=== PATIENT | female | born 1955 | race Two or more races ===

== ENCOUNTER 2017-07-21 05:59 | Observation (INO) | payer OTHER ==
[~2017-07-21 05:59] MED LIST: METHYLENE BLUE 1% 10 ML VIAL.
[2017-07-21] MEDS ORDERED: MORPHINE SULFATE 4 MG/ML DISP.SYRIN. IV (07:00)
[2017-07-21] MEDS ORDERED: LIDOCAINE 1% PF 2 ML VIAL. ID (07:00)
[2017-07-21] MEDS ORDERED: fentaNYL PF VIAL 100 MCG/2 ML VIAL IV (07:00)
[2017-07-21] MEDS ORDERED: SEVOFLURANE 61 TO 120 MINUTES. IH (07:06)
[2017-07-21] MEDS ORDERED: MIDAZOLAM HCL/PF 2 MG/2 ML VIAL. (07:06)
[2017-07-21] MEDS ORDERED: NEOSTIGMINE 10 MG/10 ML VIAL. (07:06)
[2017-07-21] MEDS ORDERED: GLYCOPYRROLATE 1 MG/5 ML VIAL. (07:07)
[2017-07-21] MEDS ORDERED: ROCURONIUM 50 MG/5 ML VIAL. (07:07)
[2017-07-21] MEDS ORDERED: fentaNYL PF VIAL 100 MCG/2 ML VIAL ×2 (07:07→08:45)
[2017-07-21] MEDS ORDERED: ONDANSETRON PF 4 MG/2 ML VIAL. (07:08)
[2017-07-21] MEDS ORDERED: PROPOFOL 20 ML IV (07:08)
[2017-07-21] MEDS ORDERED: DEXAMETHASONE SOD PHOS 20 MG/5 ML VIAL. (07:08)
[2017-07-21] MEDS ORDERED: LIDOCAINE 2% PF Vial for OR 5 ML VIAL. (07:08)
[2017-07-21] MEDS ORDERED: PHENYLEPHRINE in 0.9% NACL PF 1 MG/10 ML SYRINGE. IV (07:08)
[2017-07-21] MEDS ORDERED: KETOROLAC 30 MG/ML INJ FOR OR. INJ (07:08)
[2017-07-21 07:20] LABS: ADD MAN DIFF? NO
[2017-07-21] MEDS: IV RINGERS,LACTATED 1000ML 1,000 ML IV ×4 (07:25→22:29)
[2017-07-21] MEDS ORDERED: SCOPOLAMINE 1.5MG PATCH. TD ×2 (07:29→09:00)
[2017-07-21 07:30] LABS: BASO # 0.1 x10^3/uL (0.0-0.2); BASO % 1 % (0-3); EOS # 0.3 x10^3/uL (0.0-0.7); EOS % 5 % (0-3); HEMATOCRIT 33.7 % (36.0-47.0); HEMOGLOBIN 11.7 g/dL (12.0-15.5); LYMPH # 1.5 x10^3/uL (1.0-4.8); LYMPH % 27 % (24-48); MEAN CORPUSCULAR HEMOGLOBIN 30 pg (25-35); MEAN CORPUSCULAR HGB CONC 35 g/dL (31-37); MEAN CORPUSCULAR VOLUME 87 fL (79-100); MONO # 0.4 x10^3/uL (0.0-1.1); MONO % 6 % (0-9); NEUT # 3.4 x10^3uL (1.8-7.7); NEUT % 61 % (31-73); PLATELET COUNT 211 x10^3/uL (140-400); RED BLOOD COUNT 3.88 x10^6/uL (3.50-5.40); RED CELL DISTRIBUTION WIDTH 12.8 % (11.5-14.5); WHITE BLOOD COUNT 5.6 x10^3/uL (4.0-11.0)
[2017-07-21] MEDS: BUPIVAC MPF-EPI 0.5%-1:200000 30 ML VIAL. INJ (08:17)
[2017-07-21] MEDS: LIDOCAINE 1%/EPI 1:100,000 20 ML VIAL. INJ (08:17)
[2017-07-21] MEDS: metroNIDAZOLE 0.75% TOPICAL 1 APP TUBE TP (09:50)
[2017-07-21] MEDS ORDERED: MAG HYDROX/ALUMINUM HYD/SIMETH 30 ML ORAL.SUSP PO ×2 (10:00→10:30)
[2017-07-21] MEDS ORDERED: 0.9 % SODIUM CHLORIDE 10 ML DISP.SYRIN. IV ×2 (10:00→10:30)
[2017-07-21] MEDS ORDERED: NALOXONE 0.4 MG/ML VIAL. IV ×3 (10:00→10:30)
[2017-07-21] MEDS ORDERED: ZOLPIDEM 5 MG TABLET. PO ×2 (10:00→10:30)
[2017-07-21] MEDS ORDERED: ceFAZolin SODIUM 1 GM in IV DEXTROSE 5% 50 ML IV ×2 (10:00→10:30)
[2017-07-21] MEDS ORDERED: ONDANSETRON PF 4 MG/2 ML VIAL. IV ×2 (10:00→10:30)
[2017-07-21] MEDS ORDERED: diphenhydrAMINE HCL 25 MG CAPSULE PO ×2 (10:00→10:30)
[2017-07-21] MEDS ORDERED: diphenhydrAMINE 50 MG/ML VIAL IV ×2 (10:00→10:30)
[2017-07-21] MEDS ORDERED: DEXTROSE 50% 25 GM / 50ML DISP.SYRIN. IV ×2 (10:00→10:30)
[2017-07-21] MEDS ORDERED: MORPHINE SULFATE/PF 30 ML IV (10:12)
[2017-07-21] MEDS: PROCHLORPERAZINE 10 MG/2 ML VIAL. IV ×2 (10:22→10:58)
[2017-07-21] MEDS: fentaNYL PF VIAL 100 MCG/2 ML VIAL IV ×2 (10:23→10:58)
[2017-07-21] MEDS ORDERED: CALCIUM CARBONATE 500 MG TAB.CHEW PO (10:30)
[2017-07-21] MEDS ORDERED: SIMETHICONE 80 MG TAB.CHEW PO (10:30)
[2017-07-21] MEDS ORDERED: oxyCODONE/APAP 5/325 1 TAB TABLET PO (10:30)
[2017-07-21] MEDS: MORPHINE SULFATE/PF 30 ML IV (10:41)
[2017-07-21] MEDS ORDERED: IV NORMAL SALINE 1000ML BAG 1,000 ML IV (11:00)
[2017-07-21] MEDS: ceFAZolin SODIUM IV Push 1 GM VIAL. IVP ×2 (16:06→22:36)
[2017-07-21] MEDS: ONDANSETRON PF 4 MG/2 ML VIAL. IV (16:17)
[2017-07-21] MEDS ORDERED: OPIUM/BELLADONNA 30/16.2MG SUPP.RECT. PR (18:30)
[2017-07-21] MEDS: oxyCODONE/APAP 5/325 1 TAB TABLET PO ×2 (18:45→22:47)
[2017-07-21] MEDS: SENNOSIDES/DOCUSATE 8.6/50MG TABLET. PO (21:00)
[2017-07-21] MEDS ORDERED: SENNOSIDES/DOCUSATE 8.6/50MG TABLET. PO (21:00)
[2017-07-21] MEDS: DOCUSATE SODIUM 100 MG CAPSULE. PO (21:00)
[2017-07-21] MEDS ORDERED: DOCUSATE SODIUM 100 MG CAPSULE. PO (21:00)
[2017-07-22] MEDS: ceFAZolin SODIUM IV Push 1 GM VIAL. IVP (04:00)
[2017-07-22] MEDS: oxyCODONE/APAP 5/325 1 TAB TABLET PO ×2 (06:21→18:04)
[2017-07-22] MEDS: IV RINGERS,LACTATED 1000ML 1,000 ML IV (06:21)
[2017-07-22 07:24] LABS: HEMATOCRIT 26.7 % (36.0-47.0)
[2017-07-22 07:36] LABS: ANION GAP 6 (6-14); BLOOD UREA NITROGEN 13 mg/dL (7-20); CALCIUM 8.3 mg/dL (8.5-10.1); CARBON DIOXIDE 29 mmol/L (21-32); CHLORIDE 106 mmol/L (98-107); CREATININE 0.9 mg/dL (0.6-1.0); GFR 63.7; GLUCOSE 144 mg/dL (70-99); POTASSIUM 4.5 mmol/L (3.5-5.1); SODIUM 141 mmol/L (136-145)
[2017-07-22] MEDS: SENNOSIDES/DOCUSATE 8.6/50MG TABLET. PO (13:57)
[2017-07-22] MEDS: SIMETHICONE 80 MG TAB.CHEW PO (13:57)
[2017-07-22] MEDS: CALCIUM CARBONATE 500 MG TAB.CHEW PO (13:57)
[2017-07-23] MEDS: ONDANSETRON ODT 4 MG TAB.RAPDIS. PO (00:48)
[2017-07-23] MEDS: oxyCODONE/APAP 5/325 1 TAB TABLET PO ×2 (02:11→08:09)
[2017-07-23] MEDS: SIMETHICONE 80 MG TAB.CHEW PO (08:09)
[2017-07-23] MEDS: SENNOSIDES/DOCUSATE 8.6/50MG TABLET. PO (08:09)
[2017-07-23] MEDS: DOCUSATE SODIUM 100 MG CAPSULE. PO (08:09)
== END 2017-07-23 12:00 | disposition home or self-care (01) ==
LOC: SURG 05:59 → 3 NORTH 10:28
DX: N81.2 Incomplete uterovaginal prolapse (principal); N39.3 Stress incontinence (female) (male); K21.9 Gastro-esophageal reflux disease without esophagitis
CPT/HCPCS: 36415; 80048; 85014; 85025; 86850; 86900; 86901; 88302; 88309; 88311; 88342; 96374; 96375; 96376; A7015; G0378; G0379; J0690; J0780; J1100; J1885; J2250; J2270; J2370; J2405; J2704; J2710; J3010; J3490; J7030; J7120; Q0162; Q9968

== ENCOUNTER 2018-03-01 07:00 | Inpatient (IN) | payer OTHER ==
[~2018-03-01] VITALS: Ht 152.4 cm; Wt 59.0 kg
[~2018-03-01 07:00] MED LIST changes: +ASPI81TA50 PO; +LACT1CAP29 PO; +LACT1TAB6 PO; +LISI-334 PO; -METHYLENE BLUE 1% 10 ML VIAL.; +MULT-658 PO; +NAPR-514 PO; +OXYC1TAB15 PO; +SUCR1TAB35 PO
[2018-03-01] MEDS ORDERED: IV NORMAL SALINE 1000ML BAG 1,000 ML IV SCH (07:30)
[2018-03-01] MEDS ORDERED: ONDANSETRON PF 4 MG/2 ML VIAL. IV ONE ×2 (07:30→09:00)
[2018-03-01 07:58] LABS: BASO # 0.1 x10^3/uL (0.0-0.2); BASO % 0 % (0-3); EOS # 0.1 x10^3/uL (0.0-0.7); EOS % 1 % (0-3); HEMOGLOBIN 12.4 g/dL (12.0-15.5); LYMPH # 0.5 x10^3/uL (1.0-4.8); LYMPH % 3 % (24-48); MEAN CORPUSCULAR HEMOGLOBIN 30 pg (25-35); MEAN CORPUSCULAR HGB CONC 34 g/dL (31-37); MEAN CORPUSCULAR VOLUME 87 fL (79-100); MONO # 0.3 x10^3/uL (0.0-1.1); MONO % 2 % (0-9); NEUT # 14.9 x10^3uL (1.8-7.7); NEUT % 94 % (31-73); PLATELET COUNT 236 x10^3/uL (140-400); RED BLOOD COUNT 4.13 x10^6/uL (3.50-5.40); RED CELL DISTRIBUTION WIDTH 13.5 % (11.5-14.5); WHITE BLOOD COUNT 15.9 x10^3/uL (4.0-11.0)
--- NOTE | 2018-03-01 08:03 | PHYS DOC ---
Past Medical History Past Medical History: Hypertension, IBS Additional Past Medical Histor: Hx.from [facility]. Past Surgical History: Other (rika fundoplication) Additional Past Surgical Histo: [facility].reports pt.has had female surgery& something w/her esophagus. Alcohol Use: None Drug Use: None Adult General Chief Complaint Chief Complaint: NAUSEA/VOMITING/DIARRHA HPI HPI Patient is a 62-year-old female presents to the emergency department. She states "I'm sick". She states that last night, she began experiencing nausea and vomiting, and has had numerous episodes of watery diarrhea. Her emesis and stools have both been nonbloody. She has not had any definite abdominal pain. She has not had any fevers or chills, or nasal congestion. She denies any recent travel or antibiotic use. She denies any chest pain or shortness of breath. She denies any headache or vision changes. There are no alleviating or exacerbating factors to her symptoms. Review of Systems Review of Systems Constitutional: Denies fever or chills [] Eyes: Denies change in visual acuity, redness, or eye pain [] HENT: Denies nasal congestion or sore throat [] Respiratory: Denies cough or shortness of breath [] Cardiovascular: The patient denies any shortness of breath, chest pain, palpitations, or orthopnea [] GI: No additional information not addressed in HPI [] : Denies dysuria or hematuria [] Musculoskeletal: Denies back pain or joint pain [] Integument: Denies rash or skin lesions [] Neurologic: Denies headache, focal weakness or sensory changes [] Endocrine: Denies polyuria or polydipsia [] All other systems were reviewed and found to be within normal limits, except as documented in this note. Current Medications Current Medications Current Medications Medications (Trade) Dose Ordered Sig/Abdiaziz Start Time Stop Time Status Last Admin Dose Admin Info (CONTRAST GIVEN -- Rx MONITORING) 1 each PRN DAILY PRN 03/01/18 09:00 03/03/18 08:59 Iohexol (Omnipaque 300 Mg/ml) 60 ml 1X ONCE 03/01/18 08:45 03/01/18 08:48 DC 03/01/18 09:13 60 ML Ondansetron HCl (Zofran) 4 mg 1X ONCE 03/01/18 09:00 03/01/18 09:01 DC 03/01/18 08:57 4 MG Sodium Chloride 1,000 ml @ 1,000 mls/hr Q1H 03/01/18 07:30 03/01/18 08:29 DC 03/01/18 07:53 1,000 MLS/HR Allergies Allergies Allergies Coded Allergies Type Severity Reaction Last Updated Verified promethazine Adverse Reaction Severe SEVERE MIGRAINE 07/21/17 Yes lactose Adverse Reaction Mild Constipation. 03/01/18 Yes Physical Exam Physical Exam PHYSICAL EXAM: CONSTITUTIONAL: Well developed, well nourished HEAD: normocephalic, atraumatic EENT: PERRL, EOMI. Conjunctivae normal color, sclerae non-icteric; moist mucous membranes. NECK: Supple, non-tender; no meningismus. LUNGS: Lungs CTA, breathing even and unlabored. Normal air movement. HEART: Regular rate and rhythm, no murmur CHEST: No deformity; non-tender ABDOMEN: The abdomen is soft, and non-tender, no masses or bruits. bowel sounds are present. EXTREM: Normal ROM; no deformity, no calf tenderness. Normal pulses palpable in all extremities. There is no pedal edema. SKIN: No rash; no diaphoresis NEURO: Alert; normal speech and cognition; CN's grossly intact; strength grossly intact without focal deficit. BACK: No CVA TTP. Current Patient Data Vital Signs Vital Signs Date Time Temp Pulse Resp B/P (MAP) Pulse Ox O2 Delivery O2 Flow Rate FiO2 03/01/18 09:22 71 16 177/79 (111) 99 03/01/18 07:55 Room Air 03/01/18 07:05 98.2 98.2 Lab Values Laboratory Tests Test 03/01/18 07:38 03/01/18 08:25 White Blood Count 15.9 x10^3/uL (4.0-11.0) H Red Blood Count 4.13 x10^6/uL (3.50-5.40) Hemoglobin 12.4 g/dL (12.0-15.5) Hematocrit 36.0 % (36.0-47.0) Mean Corpuscular Volume 87 fL (79-100) Mean Corpuscular Hemoglobin 30 pg (25-35) Mean Corpuscular Hemoglobin Concent 34 g/dL (31-37) Red Cell Distribution Width 13.5 % (11.5-14.5) Platelet Count 236 x10^3/uL (140-400) Neutrophils (%) (Auto) 94 % (31-73) H Lymphocytes (%) (Auto) 3 % (24-48) L Monocytes (%) (Auto) 2 % (0-9) Eosinophils (%) (Auto) 1 % (0-3) Basophils (%) (Auto) 0 % (0-3) Neutrophils # (Auto) 14.9 x10^3uL (1.8-7.7) H Lymphocytes # (Auto) 0.5 x10^3/uL (1.0-4.8) L Monocytes # (Auto) 0.3 x10^3/uL (0.0-1.1) Eosinophils # (Auto) 0.1 x10^3/uL (0.0-0.7) Basophils # (Auto) 0.1 x10^3/uL (0.0-0.2) Segmented Neutrophils % 77 % (35-66) H Band Neutrophils % 12 % (0-9) H Lymphocytes % 5 % (24-48) L Monocytes % 4 % (0-10) Eosinophils % 2 % (0-5) Platelet Estimate Adequate (ADEQUATE) Sodium Level 140 mmol/L (136-145) Potassium Level 4.0 mmol/L (3.5-5.1) Chloride Level 102 mmol/L (98-107) Carbon Dioxide Level 24 mmol/L (21-32) Anion Gap 14 (6-14) Blood Urea Nitrogen 22 mg/dL (7-20) H Creatinine 1.2 mg/dL (0.6-1.0) H Estimated GFR (Cockcroft-Gault) 45.7 BUN/Creatinine Ratio 18 (6-20) Glucose Level 247 mg/dL (70-99) H Lactic Acid Level 2.2 mmol/L (0.4-2.0) H Calcium Level 10.0 mg/dL (8.5-10.1) Total Bilirubin 0.7 mg/dL (0.2-1.0) Aspartate Amino Transferase (AST) 18 U/L (15-37) Alanine Aminotransferase (ALT) 23 U/L (14-59) Alkaline Phosphatase 73 U/L (46-116) Troponin I Quantitative < 0.017 ng/mL (0.000-0.055) Total Protein 7.7 g/dL (6.4-8.2) Albumin 4.2 g/dL (3.4-5.0) Albumin/Globulin Ratio 1.2 (1.0-1.7) Lipase 104 U/L (73-393) Urine Collection Type U cath Urine Color Yellow Urine Clarity Clear Urine pH 5.5 Urine Specific [place] >=1.030 Urine Protein Negative mg/dL (NEG-TRACE) Urine Glucose (UA) >=1000 mg/dL (NEG) Urine Ketones (Stick) 40 mg/dL (NEG) Urine Blood Trace (NEG) Urine Nitrite Negative (NEG) Urine Bilirubin Negative (NEG) Urine Urobilinogen Dipstick 0.2 mg/dL (0.2 mg/dL) Urine Leukocyte Esterase Negative (NEG) Urine RBC Occ /HPF (0-2) Urine WBC 1-4 /HPF (0-4) Urine Squamous Epithelial Cells Occ /LPF Urine Bacteria Few /HPF (0-FEW) Urine Hyaline Casts Occasional /HPF Urine Mucus Marked /LPF Laboratory Tests 03/01/18 07:38 Laboratory Tests 03/01/18 07:38 EKG EKG [Normal sinus rhythm at a rate of 64 beats for minute, normal axis, normal intervals. There are no acute ischemic ST/T changes.] Radiology/Procedures Radiology/Procedures [PROCEDURE: ACUTE ABDOMEN SERIES Indication: Nausea vomiting and diarrhea TECHNIQUE: Upright chest and 2 views of the abdomen and pelvis COMPARISON: None FINDINGS: Heart is normal in size. Lungs are clear. No pneumothorax or pleural effusion. Visualized bony thorax is within normal limits. No evidence of pneumoperitoneum. No abnormally dilated bowel loops. No abnormal calcific densities projecting over the kidneys to suggest apparent renal stones. Visualized bones are within normal limits. IMPRESSION: No acute radiographic findings of high-grade bowel obstruction.. ] PROCEDURE: CT ABD PELV W/ IV CONTRST ONLY PQRS Compliance statement: One or more of the following individualized dose reduction techniques were utilized for this examination: 1. Automated exposure control. 2. Adjustment of the mA and/or kV according to patient size. 3. Use of iterative reconstruction technique. Indication:Nausea vomiting diarrhea, leukocytosis sx: Dane fundoplication inj 60ml Omni 300 no prev TECHNIQUE: CT abdomen and pelvis with IV contrast with multiplanar reformats. COMPARISON: None FINDINGS: Heart is normal in size. No pericardial or pleural effusion. Clear lung bases. Liver, spleen, gallbladder, pancreas, adrenals and kidneys are within normal limits. No free pelvic fluid or ascites. No enlarged retroperitoneal or pelvic adenopathy. Mild diffuse atherosclerotic disease of the infrarenal aorta. Normal appendix. No bowel obstruction. Circumferential wall thickening is seen of the descending colon and rectosigmoid colon. Rectum is distended filled with fluid. No pneumoperitoneum or pneumatosis intestinalis. Uterus is surgically absent. Urinary bladder is within normal limits. Mild sigmoid diverticulosis. Proximal colon is decompressed. No suspicious bony lesion. IMPRESSION: 1. Diffuse long segment wall thickening of the descending colon and sigmoid colon suggests colitis. Course & Med Decision Making Course & Med Decision Making Pertinent Labs and Imaging studies reviewed. (See chart for details) [9:40 AM: The patient's condition remained stable. She still appears very weak, and has had recurrent nausea and vomiting the emergency department. Her CT demonstrated colitis. I discussed the test with the patient and she would like to be hospitalized for further evaluation and treatment, which seems appropriate given her ongoing emesis. I discussed the case with the hospitalist who has graciously agreed to admit the patient for further evaluation. Leukocytosis with a left shift is noted.] Dragon Disclaimer Dragon Disclaimer This electronic medical record was generated, in whole or in part, using a voice recognition dictation system. Departure Departure Impression: Primary Impression: Colitis Additional Impressions: Leukocytosis Intractable nausea and vomiting Disposition: ADMITTED INPATIENT Admitting Physician: Stacia Gerard Condition: STABLE Referrals: NON,STAFF (PCP) Problem Qualifiers COLLEEN CARTER MD Mar 01, 2018 08:03
--- NOTE | 2018-03-01 08:18 | RAD ---
Indication: Nausea vomiting and diarrhea TECHNIQUE: Upright chest and 2 views of the abdomen and pelvis COMPARISON: None FINDINGS: Heart is normal in size. Lungs are clear. No pneumothorax or pleural effusion. Visualized bony thorax is within normal limits. No evidence of pneumoperitoneum. No abnormally dilated bowel loops. No abnormal calcific densities projecting over the kidneys to suggest apparent renal stones. Visualized bones are within normal limits. IMPRESSION: No acute radiographic findings of high-grade bowel obstruction.. Electronically signed by: Stuart Carmichael DO (03/01/2018 8:14 AM) [facility]
[2018-03-01 08:19] LABS: CREATININE 1.2 mg/dL (0.6-1.0); GFR 45.7
[2018-03-01 08:32] LABS: % BANDS 12 % (0-9); % EOS 2 % (0-5); % LYMPHS 5 % (24-48); % MONOS 4 % (0-10); % SEGS 77 % (35-66); ALBUMIN 4.2 g/dL (3.4-5.0); ALBUMIN/GLOBULIN RATIO 1.2 (1.0-1.7); PLT ESTIMATE ADEQUATE (ADEQUATE); TOTAL BILIRUBIN 0.7 mg/dL (0.2-1.0); TOTAL PROTEIN 7.7 g/dL (6.4-8.2)
[2018-03-01 08:37] LABS: BILIRUBIN,URINE NEGATIVE (NEG); CLARITY,URINE CLEAR; COLOR,URINE YELLOW; NITRITE,URINE NEGATIVE (NEG); PH,URINE 5.5; PROTEIN,URINE NEGATIVE (NEG-TRACE); UROBILINOGEN,URINE 0.2 mg/dL (0.2 mg/dL)
[2018-03-01] MEDS ORDERED: IOHEXOL 300 MG/ML 100ML VIAL. IV ONE (08:45)
[2018-03-01] MEDS ORDERED: CONTRAST GIVEN. MC PRN (09:00)
[2018-03-01 09:01] LABS: BACTERIA,URINE FEW /HPF (0-FEW); HYALINE CASTS, URINE OCCASIONAL /HPF; RBC,URINE OCC /HPF (0-2); SQUAMOUS EPITHELIAL CELL,UR OCC /LPF
--- NOTE | 2018-03-01 09:32 | RAD ---
PQRS Compliance statement: One or more of the following individualized dose reduction techniques were utilized for this examination: 1. Automated exposure control. 2. Adjustment of the mA and/or kV according to patient size. 3. Use of iterative reconstruction technique. Indication:Nausea vomiting diarrhea, leukocytosis sx: Dane fundoplication inj 60ml Omni 300 no prev TECHNIQUE: CT abdomen and pelvis with IV contrast with multiplanar reformats. COMPARISON: None FINDINGS: Heart is normal in size. No pericardial or pleural effusion. Clear lung bases. Liver, spleen, gallbladder, pancreas, adrenals and kidneys are within normal limits. No free pelvic fluid or ascites. No enlarged retroperitoneal or pelvic adenopathy. Mild diffuse atherosclerotic disease of the infrarenal aorta. Normal appendix. No bowel obstruction. Circumferential wall thickening is seen of the descending colon and rectosigmoid colon. Rectum is distended filled with fluid. No pneumoperitoneum or pneumatosis intestinalis. Uterus is surgically absent. Urinary bladder is within normal limits. Mild sigmoid diverticulosis. Proximal colon is decompressed. No suspicious bony lesion. IMPRESSION: 1. Diffuse long segment wall thickening of the descending colon and sigmoid colon suggests colitis. Electronically signed by: Stuart Carmichael DO (03/01/2018 9:28 AM) [facility]
[2018-03-01] MEDS ORDERED: IV NORMAL SALINE 1000ML BAG 1,000 ML IV ONE ×2 (09:45)
[2018-03-01] MEDS ORDERED: oxyCODONE/APAP 5/325 1 TAB TABLET PO PRN (10:00)
[2018-03-01] MEDS ORDERED: ACETAMINOPHEN 500 MG TABLET PO PRN (10:15)
[2018-03-01] MEDS ORDERED: ACETAMINOPHEN/CODEINE 300/30MG TABLET. PO PRN (10:15)
[2018-03-01] MEDS ORDERED: LABETALOL 20 MG/4 ML DISP.SYRIN. IVP PRN (10:15)
[2018-03-01] MEDS ORDERED: MORPHINE SULFATE 2 MG/ML VIAL. IV PRN (10:15)
--- NOTE | 2018-03-01 11:36 | PDOC1 ---
History and Physical Date of Admission Date of Admission DATE: 03/01/18 TIME: 11:31 Identification/Chief Complaint Chief Complaint Nausea vomiting diarrhea 1 day Source Source: Caregiver, Chart review, Patient History of Present Illness History of Present Illness 62-year-old female, nausea vomiting diarrhea 1 day, no recent sick contacts or recent travel. History of colitis 3 in a span of years. Never had a colonoscopy. Colitis on CAT scan with a white count of 15.9, normal hemoglobin and platelets with a creatinine of 1.2 and a lactate of 2.2. Patient has a bucket at bedside, minimal input by pt with my H and P bec of feeling sick but the helps. Watery diarrhea but no blood. Admitted for colitis started on antibiotics with GI on board. Past Medical History GI: GERD Past Surgical History Past Surgical History: Hernia Repair Family History Family History: Hypertension Social History Smoke: No ALCOHOL: none Drugs: None Current Problem List Problem List Problems Medical Problems: (1) Colitis Status: Acute (2) Intractable nausea and vomiting Status: Acute (3) Leukocytosis Status: Acute Current Medications Current Medications Current Medications Sodium Chloride 1,000 ml @ 1,000 mls/hr Q1H IV Last administered on at 07:53; Start 03/01/18 at 07:30; Stop 03/01/18 at 08:29; Status DC Ondansetron HCl (Zofran) 4 mg 1X ONCE IV Last administered on 03/01/18at 07:53 ; Start 03/01/18 at 07:30; Stop 03/01/18 at 07:35; Status DC Iohexol (Omnipaque 300 Mg/ml) 60 ml 1X ONCE IV Last administered on at 09:13; Start 03/01/18 at 08:45; Stop 03/01/18 at 08:48; Status DC Info (CONTRAST GIVEN -- Rx MONITORING) 1 each PRN DAILY PRN MC SEE COMMENTS; Start 03/01/18 at 09:00; Stop 03/03/18 at 08:59 Ondansetron HCl (Zofran) 4 mg 1X ONCE IV Last administered on 03/01/18at 08:57 ; Start 03/01/18 at 09:00; Stop 03/01/18 at 09:01; Status DC Sodium Chloride 1,000 ml @ 1,000 mls/hr 1X ONCE IV Last administered on 03/01at 10:19; Start 03/01/18 at 09:45; Stop 03/01/18 at 10:44; Status DC Metronidazole 100 ml @ 100 mls/hr Q8HRS IV ; Start 03/01/18 at 14:00 Ondansetron HCl (Zofran) 4 mg PRN Q8HRS PRN IV NAUSEA/VOMITING; Start at 09:45; Stop 03/02/18 at 09:44 Sodium Chloride 1,000 ml @ 125 mls/hr 1X ONCE IV ; Start 03/01/18 at 09:45; Stop 03/01/18 at 17:44 Metronidazole 100 ml @ 100 mls/hr ONCE ONCE IV Last administered on at 10:56; Start 03/01/18 at 10:00; Stop 03/01/18 at 10:59; Status DC Aspirin (Ecotrin) 81 mg DAILY PO ; Start 03/01/18 at 11:00 Lisinopril (Prinivil) 20 mg DAILY PO ; Start 03/01/18 at 11:00 Oxycodone/ Acetaminophen (Percocet 5/325) 1 tab PRN QID PRN PO MODERATE TO SEVERE PAIN; Start 03/01/18 at 10:00 Naproxen (Naprosyn) 500 mg BID PO ; Start 03/01/18 at 10:15 Lactobacillus Rhamnosus (Culturelle) 1 cap BID PO ; Start 03/01/18 at 11:00 Multivitamins (Thera M Plus) 1 tab DAILY PO ; Start 03/01/18 at 11:00 Sucralfate (Carafate) 1 gm QIDACHS PO ; Start 03/01/18 at 11:30 Acetaminophen (Tylenol) 500 mg PRN Q6HRS PRN PO MILD PAIN / TEMP; Start at 10:15 Acetaminophen/ Codeine Phosphate (Tylenol #3) 1 tab PRN Q6HRS PRN PO MODERATE PAIN; Start 03/01/18 at 10:15 Famotidine (Pepcid Vial) 20 mg QHS IVP ; Start 03/01/18 at 21:00 Morphine Sulfate (Morphine Sulfate) 2 mg PRN Q2HR PRN IV PAIN; Start 03/01/18 at 10:15 Sodium Chloride 1,000 ml @ 100 mls/hr Q10H IV ; Start 03/01/18 at 10:15 Labetalol HCl (Normodyne Iv Push) 10 mg PRN Q2HR PRN IVP HYPERTENSION, SEE COMMENTS; Start 03/01/18 at 10:15 Active Scripts Active Naproxen 500 Mg Tablet 500 Mg PO BID Percocet 5-325 Mg Tablet (Oxycodone/Acetaminophen) 1 Each Tablet 1-2 Tab PO Q4-6HRS Reported Acidophilus (Lactobacillus Acidophilus) 1 Each Tablet 1 Each PO Centrum Silver Tablet (Multivits-Min/Fa/Lycopene/Lut) 1 Each Tablet 1 Each PO Probiotic (Lactobacillus Combo No.10) 1 Each Capsule 1 Each PO Carafate (Sucralfate) 1 Gm Tablet 1 Gm PO Aspir-Low (Aspirin) 81 Mg Tablet.dr 81 Mg PO Lisinopril 20 Mg Tablet 20 Mg PO DAILY Allergies Allergies: Coded Allergies: promethazine (Verified Adverse Reaction, Severe, SEVERE MIGRAINE, 07/21/17) lactose (Verified Adverse Reaction, Mild, Constipation., 03/01/18) ROS Review of System as per history of present illness, the rest of ROS 14 point negative Physical Exam General: No acute distress, Other (looks sick, bucket at bedside) HEENT: PERRLA, EOMI Lungs: Clear to auscultation, Normal air movement Heart: S1S2, RRR, no thrills, no rubs, no gallops, no murmurs Cardiovascular: S1, S2 Breasts: Normal, Rt breast nml w/o mass, Lt breast nml w/o mass, Nipples normal Abdomen: Soft, Other (hyperactive bowel sounds, tenderness periumbilical area but no guarding or rebound) Rectal Exam: not examined PELVIC: Nml ext genitalia Extremities: No clubbing, No cyanosis, No edema, Normal pulses, No tenderness/ swelling Skin: No rashes, No breakdown, No significant lesion Neuro: Normal gait, Normal speech, Strength at 5/5 X4 ext, Normal tone, Sensation intact, Cranial nerves 3-12 NL, Reflexes 2+ Psych/Mental Status: Mental status NL, Mood NL Vitals Vitals Vital Signs Date Time Temp Pulse Resp B/P (MAP) Pulse Ox O2 Delivery O2 Flow Rate FiO2 03/01/18 10:58 68 18 187/81 (116) 97 Room Air 03/01/18 07:05 98.2 98.2 Labs Labs Laboratory Tests Test 03/01/18 07:30 03/01/18 07:38 03/01/18 08:25 Erythrocyte Sedimentation Rate 15 (0-25) White Blood Count 15.9 x10^3/uL (4.0-11.0) Red Blood Count 4.13 x10^6/uL (3.50-5.40) Hemoglobin 12.4 g/dL (12.0-15.5) Hematocrit 36.0 % (36.0-47.0) Mean Corpuscular Volume 87 fL (79-100) Mean Corpuscular Hemoglobin 30 pg (25-35) Mean Corpuscular Hemoglobin Concent 34 g/dL (31-37) Red Cell Distribution Width 13.5 % (11.5-14.5) Platelet Count 236 x10^3/uL (140-400) Neutrophils (%) (Auto) 94 % (31-73) Lymphocytes (%) (Auto) 3 % (24-48) Monocytes (%) (Auto) 2 % (0-9) Eosinophils (%) (Auto) 1 % (0-3) Basophils (%) (Auto) 0 % (0-3) Neutrophils # (Auto) 14.9 x10^3uL (1.8-7.7) Lymphocytes # (Auto) 0.5 x10^3/uL (1.0-4.8) Monocytes # (Auto) 0.3 x10^3/uL (0.0-1.1) Eosinophils # (Auto) 0.1 x10^3/uL (0.0-0.7) Basophils # (Auto) 0.1 x10^3/uL (0.0-0.2) Segmented Neutrophils % 77 % (35-66) Band Neutrophils % 12 % (0-9) Lymphocytes % 5 % (24-48) Monocytes % 4 % (0-10) Eosinophils % 2 % (0-5) Platelet Estimate Adequate (ADEQUATE) Sodium Level 140 mmol/L (136-145) Potassium Level 4.0 mmol/L (3.5-5.1) Chloride Level 102 mmol/L (98-107) Carbon Dioxide Level 24 mmol/L (21-32) Anion Gap 14 (6-14) Blood Urea Nitrogen 22 mg/dL (7-20) Creatinine 1.2 mg/dL (0.6-1.0) Estimated GFR (Cockcroft-Gault) 45.7 BUN/Creatinine Ratio 18 (6-20) Glucose Level 247 mg/dL (70-99) Lactic Acid Level 2.2 mmol/L (0.4-2.0) Calcium Level 10.0 mg/dL (8.5-10.1) Total Bilirubin 0.7 mg/dL (0.2-1.0) Aspartate Amino Transf (AST/SGOT) 18 U/L (15-37) Alanine Aminotransferase (ALT/SGPT) 23 U/L (14-59) Alkaline Phosphatase 73 U/L (46-116) Troponin I Quantitative < 0.017 ng/mL (0.000-0.055) Total Protein 7.7 g/dL (6.4-8.2) Albumin 4.2 g/dL (3.4-5.0) Albumin/Globulin Ratio 1.2 (1.0-1.7) Lipase 104 U/L (73-393) Urine Collection Type U cath Urine Color Yellow Urine Clarity Clear Urine pH 5.5 Urine Specific [place] >=1.030 Urine Protein Negative mg/dL (NEG-TRACE) Urine Glucose (UA) >=1000 mg/dL (NEG) Urine Ketones (Stick) 40 mg/dL (NEG) Urine Blood Trace (NEG) Urine Nitrite Negative (NEG) Urine Bilirubin Negative (NEG) Urine Urobilinogen Dipstick 0.2 mg/dL (0.2 mg/dL) Urine Leukocyte Esterase Negative (NEG) Urine RBC Occ /HPF (0-2) Urine WBC 1-4 /HPF (0-4) Urine Squamous Epithelial Cells Occ /LPF Urine Bacteria Few /HPF (0-FEW) Urine Hyaline Casts Occasional /HPF Urine Mucus Marked /LPF Laboratory Tests Test 03/01/18 07:30 03/01/18 07:38 03/01/18 08:25 Erythrocyte Sedimentation Rate 15 (0-25) White Blood Count 15.9 x10^3/uL (4.0-11.0) Red Blood Count 4.13 x10^6/uL (3.50-5.40) Hemoglobin 12.4 g/dL (12.0-15.5) Hematocrit 36.0 % (36.0-47.0) Mean Corpuscular Volume 87 fL (79-100) Mean Corpuscular Hemoglobin 30 pg (25-35) Mean Corpuscular Hemoglobin Concent 34 g/dL (31-37) Red Cell Distribution Width 13.5 % (11.5-14.5) Platelet Count 236 x10^3/uL (140-400) Neutrophils (%) (Auto) 94 % (31-73) Lymphocytes (%) (Auto) 3 % (24-48) Monocytes (%) (Auto) 2 % (0-9) Eosinophils (%) (Auto) 1 % (0-3) Basophils (%) (Auto) 0 % (0-3) Neutrophils # (Auto) 14.9 x10^3uL (1.8-7.7) Lymphocytes # (Auto) 0.5 x10^3/uL (1.0-4.8) Monocytes # (Auto) 0.3 x10^3/uL (0.0-1.1) Eosinophils # (Auto) 0.1 x10^3/uL (0.0-0.7) Basophils # (Auto) 0.1 x10^3/uL (0.0-0.2) Segmented Neutrophils % 77 % (35-66) Band Neutrophils % 12 % (0-9) Lymphocytes % 5 % (24-48) Monocytes % 4 % (0-10) Eosinophils % 2 % (0-5) Platelet Estimate Adequate (ADEQUATE) Sodium Level 140 mmol/L (136-145) Potassium Level 4.0 mmol/L (3.5-5.1) Chloride Level 102 mmol/L (98-107) Carbon Dioxide Level 24 mmol/L (21-32) Anion Gap 14 (6-14) Blood Urea Nitrogen 22 mg/dL (7-20) Creatinine 1.2 mg/dL (0.6-1.0) Estimated GFR (Cockcroft-Gault) 45.7 BUN/Creatinine Ratio 18 (6-20) Glucose Level 247 mg/dL (70-99) Lactic Acid Level 2.2 mmol/L (0.4-2.0) Calcium Level 10.0 mg/dL (8.5-10.1) Total Bilirubin 0.7 mg/dL (0.2-1.0) Aspartate Amino Transf (AST/SGOT) 18 U/L (15-37) Alanine Aminotransferase (ALT/SGPT) 23 U/L (14-59) Alkaline Phosphatase 73 U/L (46-116) Troponin I Quantitative < 0.017 ng/mL (0.000-0.055) Total Protein 7.7 g/dL (6.4-8.2) Albumin 4.2 g/dL (3.4-5.0) Albumin/Globulin Ratio 1.2 (1.0-1.7) Lipase 104 U/L (73-393) Urine Collection Type U cath Urine Color Yellow Urine Clarity Clear Urine pH 5.5 Urine Specific [place] >=1.030 Urine Protein Negative mg/dL (NEG-TRACE) Urine Glucose (UA) >=1000 mg/dL (NEG) Urine Ketones (Stick) 40 mg/dL (NEG) Urine Blood Trace (NEG) Urine Nitrite Negative (NEG) Urine Bilirubin Negative (NEG) Urine Urobilinogen Dipstick 0.2 mg/dL (0.2 mg/dL) Urine Leukocyte Esterase Negative (NEG) Urine RBC Occ /HPF (0-2) Urine WBC 1-4 /HPF (0-4) Urine Squamous Epithelial Cells Occ /LPF Urine Bacteria Few /HPF (0-FEW) Urine Hyaline Casts Occasional /HPF Urine Mucus Marked /LPF VTE Prophylaxis Ordered VTE Prophylaxis Devices: Yes VTE Pharmacological Prophylaxi: Yes Assessment/Plan Assessment/Plan Descending colon and sigmoid colitis- History of colitis in the past Never had a colonoscopy SIRS POA Mild PCM Elevated lactate/leukocytosis-even sepsis with no organ dysfunction POA AK I VMN secondary to GI loss Plan: 2 MN IV antibiotics, IV fluids, nothing by mouth, GI consult, will need colonoscopy in the future Home meds I have reconciled okay to have meds with ice chips or sips of water Seen at ER, dw REchecl CBC and lactate tmr TR MALLOY MD Mar 01, 2018 11:36
--- NOTE | 2018-03-01 13:40 | PDOC2 ---
GI CONSULT Reason For Consult: N/V/Diarrhea/Colitis HPI: HPI: 62-year-old female, nausea vomiting diarrhea that began on 02/27/2018 , no recent sick contacts or recent travel. She has had both hematemesis and rectal bleeding. Colitis on CAT scan with a white count of 15.9, normal hemoglobin and platelets with a creatinine of 1.2 and a lactate of 2.2. She admits to epigastric abdominal pain She takes a daily ASA and takes an addition al 3 Advil daily for headaches. History of colitis 3 in a span of years with the last in 2005. Never had a colonoscopy. She had an EGD 20 years ago prior to her Mauro fundoplication PMH: PMH: Past Medical History Past Medical History: Hypertension, IBS Additional Past Medical Histor: Hx.from [facility], [place], operated by [facility]. Past Surgical History: Other (mauro fundoplication) Additional Past Surgical Histo: Hsd.reports pt.has had female surgery& something w/her esophagus. Alcohol Use: None Drug Use: None FMH: no CRC Meds Active Scripts Active Naproxen 500 Mg Tablet 500 Mg PO BID Percocet 5-325 Mg Tablet (Oxycodone/Acetaminophen) 1 Each Tablet 1-2 Tab PO Q4-6HRS Reported Acidophilus (Lactobacillus Acidophilus) 1 Each Tablet 1 Each PO Centrum Silver Tablet (Multivits-Min/Fa/Lycopene/Lut) 1 Each Tablet 1 Each PO Probiotic (Lactobacillus Combo No.10) 1 Each Capsule 1 Each PO Carafate (Sucralfate) 1 Gm Tablet 1 Gm PO Aspir-Low (Aspirin) 81 Mg Tablet. 81 Mg PO Lisinopril 20 Mg Tablet 20 Mg PO DAILY Allergies Allergies: Coded Allergies: promethazine (Verified Adverse Reaction, Severe, SEVERE MIGRAINE, 07/21/17) lactose (Verified Adverse Reaction, Mild, Constipation., 03/01/18) Social History: Smoke: No ALCOHOL: none Drugs: None ROS: Review of Systems Review of Systems Constitutional: Admits to chills [] Eyes: Denies change in visual acuity, redness, or eye pain [] HENT: Denies nasal congestion or sore throat [] Respiratory: Denies cough or shortness of breath [] Cardiovascular: The patient denies any shortness of breath, chest pain, palpitations, or orthopnea [] GI: No additional information not addressed in HPI [] : Denies dysuria or hematuria [] Musculoskeletal: Denies back pain or joint pain [] Integument: Denies rash or skin lesions [] Neurologic: Denies headache, focal weakness or sensory changes [] Endocrine: Denies polyuria or polydipsia [] VItals: Vitals: Vital Signs Date Time Temp Pulse Resp B/P (MAP) Pulse Ox O2 Delivery O2 Flow Rate FiO2 03/01/18 10:58 68 18 187/81 (116) 97 Room Air 03/01/18 07:05 98.2 98.2 Labs: Labs: Laboratory Tests Test 03/01/18 07:30 03/01/18 07:38 03/01/18 08:25 Erythrocyte Sedimentation Rate 15 (0-25) White Blood Count 15.9 x10^3/uL (4.0-11.0) Red Blood Count 4.13 x10^6/uL (3.50-5.40) Hemoglobin 12.4 g/dL (12.0-15.5) Hematocrit 36.0 % (36.0-47.0) Mean Corpuscular Volume 87 fL (79-100) Mean Corpuscular Hemoglobin 30 pg (25-35) Mean Corpuscular Hemoglobin Concent 34 g/dL (31-37) Red Cell Distribution Width 13.5 % (11.5-14.5) Platelet Count 236 x10^3/uL (140-400) Neutrophils (%) (Auto) 94 % (31-73) Lymphocytes (%) (Auto) 3 % (24-48) Monocytes (%) (Auto) 2 % (0-9) Eosinophils (%) (Auto) 1 % (0-3) Basophils (%) (Auto) 0 % (0-3) Neutrophils # (Auto) 14.9 x10^3uL (1.8-7.7) Lymphocytes # (Auto) 0.5 x10^3/uL (1.0-4.8) Monocytes # (Auto) 0.3 x10^3/uL (0.0-1.1) Eosinophils # (Auto) 0.1 x10^3/uL (0.0-0.7) Basophils # (Auto) 0.1 x10^3/uL (0.0-0.2) Segmented Neutrophils % 77 % (35-66) Band Neutrophils % 12 % (0-9) Lymphocytes % 5 % (24-48) Monocytes % 4 % (0-10) Eosinophils % 2 % (0-5) Platelet Estimate Adequate (ADEQUATE) Sodium Level 140 mmol/L (136-145) Potassium Level 4.0 mmol/L (3.5-5.1) Chloride Level 102 mmol/L (98-107) Carbon Dioxide Level 24 mmol/L (21-32) Anion Gap 14 (6-14) Blood Urea Nitrogen 22 mg/dL (7-20) Creatinine 1.2 mg/dL (0.6-1.0) Estimated GFR (Cockcroft-Gault) 45.7 BUN/Creatinine Ratio 18 (6-20) Glucose Level 247 mg/dL (70-99) Lactic Acid Level 2.2 mmol/L (0.4-2.0) Calcium Level 10.0 mg/dL (8.5-10.1) Total Bilirubin 0.7 mg/dL (0.2-1.0) Aspartate Amino Transf (AST/SGOT) 18 U/L (15-37) Alanine Aminotransferase (ALT/SGPT) 23 U/L (14-59) Alkaline Phosphatase 73 U/L (46-116) Troponin I Quantitative < 0.017 ng/mL (0.000-0.055) Total Protein 7.7 g/dL (6.4-8.2) Albumin 4.2 g/dL (3.4-5.0) Albumin/Globulin Ratio 1.2 (1.0-1.7) Lipase 104 U/L (73-393) Urine Collection Type U cath Urine Color Yellow Urine Clarity Clear Urine pH 5.5 Urine Specific [place] >=1.030 Urine Protein Negative mg/dL (NEG-TRACE) Urine Glucose (UA) >=1000 mg/dL (NEG) Urine Ketones (Stick) 40 mg/dL (NEG) Urine Blood Trace (NEG) Urine Nitrite Negative (NEG) Urine Bilirubin Negative (NEG) Urine Urobilinogen Dipstick 0.2 mg/dL (0.2 mg/dL) Urine Leukocyte Esterase Negative (NEG) Urine RBC Occ /HPF (0-2) Urine WBC 1-4 /HPF (0-4) Urine Squamous Epithelial Cells Occ /LPF Urine Bacteria Few /HPF (0-FEW) Urine Hyaline Casts Occasional /HPF Urine Mucus Marked /LPF Imaging: Imaging: CT A/P IMPRESSION: 1. Diffuse long segment wall thickening of the descending colon and sigmoid colon suggests colitis. PE: GEN: Shaking with chills HEENT: Atraumatic, PERRLA LUNGS: CTAB HEART: RRR, no murmurs ABD: NABS, S/ND TTP NICKIE and LLQ EXTREMITY: No edema SKIN: No rashes, no jaundice NEURO/PSYCH: A & O 3 A/P: A/P: A 1) Left sided colitis: MARCELO vs Ischemia vs infection vs IBD 2) N/V 3) Hematemesis 4) Diarrhea with blood 5) Epigastric pain 6) LLQ tenderness P 1) Hydration 2) Stool studies 3) Agree with Metronidazole 4) Favor outpatient EGD/Colon once acute episode resolves VIOLET BEJARANO MD Mar 01, 2018 13:40
[2018-03-01] MEDS ORDERED: MORPHINE SULFATE 4 MG/ML VIAL. IV PRN (13:48)
[2018-03-01] MEDS: ONDANSETRON PF 4 MG/2 ML VIAL. IV PRN (14:10)
[2018-03-01] MEDS: IV NORMAL SALINE 1000ML BAG 1,000 ML IV SCH ×2 (14:21→21:02)
[2018-03-01] MEDS: SUCRALFATE 1 GM TABLET. PO SCH ×3 (14:22→21:02)
[2018-03-01] MEDS: LISINOPRIL 20 MG TABLET PO SCH (14:22)
[2018-03-01] MEDS: LACTOBACILLUS RHAMNOSUS GG 1 CAPSULE. PO SCH ×2 (14:22→21:01)
[2018-03-01] MEDS: ASPIRIN ENTERIC COATED 81 MG TABLET.DR. PO SCH (14:22)
[2018-03-01] MEDS: NAPROXEN 500 MG TABLET PO SCH ×2 (14:22→21:02)
[2018-03-01] MEDS: MULTIVITAMIN with MINERAL TABLET. PO SCH (14:23)
[2018-03-01 15:22] VITALS: BP 135/66
--- NOTE | 2018-03-01 17:56 | EKG ---
[facility] [address] [place] [address] Test Date: 2018-03-01 Test Time: 08:12:19 Pat Name: PALOMO BEARDEN Department: Room: Gender: F [employer]: : 1955 Requested By: COLLEEN CARTER Order Number: [id number] Reading MD: Measurements Intervals Burton Rate: 63 P: 51 WV: 170 QRS: 52 QRSD: 98 T: 28 QT: 424 QTc: 437 Interpretive Statements SINUS RHYTHM NORMAL ECG No previous ECG available for comparison
[2018-03-01 19:00] VITALS: BP 135/66
[2018-03-01] MEDS: FAMOTIDINE 20 MG/2 ML VIAL IVP SCH (21:02)
[2018-03-01 23:00] VITALS: BP 143/67
[2018-03-02 03:00] VITALS: BP 121/51
[2018-03-02] MEDS: IV NORMAL SALINE 1000ML BAG 1,000 ML IV SCH ×2 (05:42→16:10)
[2018-03-02 05:46] LABS: BASO % 0 % (0-3); EOS % 0 % (0-3); HEMATOCRIT 31.4 % (36.0-47.0); HEMOGLOBIN 10.5 g/dL (12.0-15.5); LYMPH # 0.6 x10^3/uL (1.0-4.8); LYMPH % 6 % (24-48); MEAN CORPUSCULAR HEMOGLOBIN 30 pg (25-35); MEAN CORPUSCULAR HGB CONC 34 g/dL (31-37); MEAN CORPUSCULAR VOLUME 89 fL (79-100); MONO # 0.5 x10^3/uL (0.0-1.1); MONO % 5 % (0-9); NEUT # 9.6 x10^3uL (1.8-7.7); NEUT % 90 % (31-73); PLATELET COUNT 164 x10^3/uL (140-400); RED BLOOD COUNT 3.54 x10^6/uL (3.50-5.40); RED CELL DISTRIBUTION WIDTH 13.7 % (11.5-14.5); WHITE BLOOD COUNT 10.7 x10^3/uL (4.0-11.0)
[2018-03-02 06:24] LABS: ALBUMIN 3.7 g/dL (3.4-5.0); ALBUMIN/GLOBULIN RATIO 1.4 (1.0-1.7); CALCIUM 8.9 mg/dL (8.5-10.1); GFR 56.4; POTASSIUM 4.1 mmol/L (3.5-5.1); TOTAL BILIRUBIN 0.4 mg/dL (0.2-1.0); TOTAL PROTEIN 6.4 g/dL (6.4-8.2)
[2018-03-02] MEDS: ONDANSETRON PF 4 MG/2 ML VIAL. IV PRN ×2 (06:53→16:10)
[2018-03-02 06:58] VITALS: BP 157/58
--- NOTE | 2018-03-02 07:32 | PDOC ---
G I PROGRESS NOTE Reason for Follow-up Abd pain/diarrhea Subjective Nausea persists Physical Exam Lungs clear CV S1 S2 ABD +BS, mild tenderness throughout Review of Relevant I have reviewed the following items jamilah (where applicable) has been applied. Labs Laboratory Tests Test 03/01/18 07:30 03/01/18 07:38 03/01/18 08:25 03/02/18 05:15 Erythrocyte Sedimentation Rate 15 (0-25) White Blood Count 15.9 x10^3/uL (4.0-11.0) 10.7 x10^3/uL (4.0-11.0) Red Blood Count 4.13 x10^6/uL (3.50-5.40) 3.54 x10^6/uL (3.50-5.40) Hemoglobin 12.4 g/dL (12.0-15.5) 10.5 g/dL (12.0-15.5) Hematocrit 36.0 % (36.0-47.0) 31.4 % (36.0-47.0) Mean Corpuscular Volume 87 fL (79-100) 89 fL (79-100) Mean Corpuscular Hemoglobin 30 pg (25-35) 30 pg (25-35) Mean Corpuscular Hemoglobin Concent 34 g/dL (31-37) 34 g/dL (31-37) Red Cell Distribution Width 13.5 % (11.5-14.5) 13.7 % (11.5-14.5) Platelet Count 236 x10^3/uL (140-400) 164 x10^3/uL (140-400) Neutrophils (%) (Auto) 94 % (31-73) 90 % (31-73) Lymphocytes (%) (Auto) 3 % (24-48) 6 % (24-48) Monocytes (%) (Auto) 2 % (0-9) 5 % (0-9) Eosinophils (%) (Auto) 1 % (0-3) 0 % (0-3) Basophils (%) (Auto) 0 % (0-3) 0 % (0-3) Neutrophils # (Auto) 14.9 x10^3uL (1.8-7.7) 9.6 x10^3uL (1.8-7.7) Lymphocytes # (Auto) 0.5 x10^3/uL (1.0-4.8) 0.6 x10^3/uL (1.0-4.8) Monocytes # (Auto) 0.3 x10^3/uL (0.0-1.1) 0.5 x10^3/uL (0.0-1.1) Eosinophils # (Auto) 0.1 x10^3/uL (0.0-0.7) 0.0 x10^3/uL (0.0-0.7) Basophils # (Auto) 0.1 x10^3/uL (0.0-0.2) 0.0 x10^3/uL (0.0-0.2) Segmented Neutrophils % 77 % (35-66) Band Neutrophils % 12 % (0-9) Lymphocytes % 5 % (24-48) Monocytes % 4 % (0-10) Eosinophils % 2 % (0-5) Platelet Estimate Adequate (ADEQUATE) Sodium Level 140 mmol/L (136-145) 140 mmol/L (136-145) Potassium Level 4.0 mmol/L (3.5-5.1) 4.1 mmol/L (3.5-5.1) Chloride Level 102 mmol/L (98-107) 106 mmol/L (98-107) Carbon Dioxide Level 24 mmol/L (21-32) 20 mmol/L (21-32) Anion Gap 14 (6-14) 14 (6-14) Blood Urea Nitrogen 22 mg/dL (7-20) 21 mg/dL (7-20) Creatinine 1.2 mg/dL (0.6-1.0) 1.0 mg/dL (0.6-1.0) Estimated GFR (Cockcroft-Gault) 45.7 56.4 BUN/Creatinine Ratio 18 (6-20) 21 (6-20) Glucose Level 247 mg/dL (70-99) 160 mg/dL (70-99) Lactic Acid Level 2.2 mmol/L (0.4-2.0) 1.7 mmol/L (0.4-2.0) Calcium Level 10.0 mg/dL (8.5-10.1) 8.9 mg/dL (8.5-10.1) Total Bilirubin 0.7 mg/dL (0.2-1.0) 0.4 mg/dL (0.2-1.0) Aspartate Amino Transf (AST/SGOT) 18 U/L (15-37) 20 U/L (15-37) Alanine Aminotransferase (ALT/SGPT) 23 U/L (14-59) 24 U/L (14-59) Alkaline Phosphatase 73 U/L (46-116) 58 U/L (46-116) Troponin I Quantitative < 0.017 ng/mL (0.000-0.055) Total Protein 7.7 g/dL (6.4-8.2) 6.4 g/dL (6.4-8.2) Albumin 4.2 g/dL (3.4-5.0) 3.7 g/dL (3.4-5.0) Albumin/Globulin Ratio 1.2 (1.0-1.7) 1.4 (1.0-1.7) Lipase 104 U/L (73-393) Urine Collection Type U cath Urine Color Yellow Urine Clarity Clear Urine pH 5.5 Urine Specific [place] >=1.030 Urine Protein Negative mg/dL (NEG-TRACE) Urine Glucose (UA) >=1000 mg/dL (NEG) Urine Ketones (Stick) 40 mg/dL (NEG) Urine Blood Trace (NEG) Urine Nitrite Negative (NEG) Urine Bilirubin Negative (NEG) Urine Urobilinogen Dipstick 0.2 mg/dL (0.2 mg/dL) Urine Leukocyte Esterase Negative (NEG) Urine RBC Occ /HPF (0-2) Urine WBC 1-4 /HPF (0-4) Urine Squamous Epithelial Cells Occ /LPF Urine Bacteria Few /HPF (0-FEW) Urine Hyaline Casts Occasional /HPF Urine Mucus Marked /LPF Laboratory Tests Test 03/01/18 07:30 03/01/18 07:38 03/01/18 08:25 03/02/18 05:15 Erythrocyte Sedimentation Rate 15 (0-25) White Blood Count 15.9 x10^3/uL (4.0-11.0) 10.7 x10^3/uL (4.0-11.0) Red Blood Count 4.13 x10^6/uL (3.50-5.40) 3.54 x10^6/uL (3.50-5.40) Hemoglobin 12.4 g/dL (12.0-15.5) 10.5 g/dL (12.0-15.5) Hematocrit 36.0 % (36.0-47.0) 31.4 % (36.0-47.0) Mean Corpuscular Volume 87 fL (79-100) 89 fL (79-100) Mean Corpuscular Hemoglobin 30 pg (25-35) 30 pg (25-35) Mean Corpuscular Hemoglobin Concent 34 g/dL (31-37) 34 g/dL (31-37) Red Cell Distribution Width 13.5 % (11.5-14.5) 13.7 % (11.5-14.5) Platelet Count 236 x10^3/uL (140-400) 164 x10^3/uL (140-400) Neutrophils (%) (Auto) 94 % (31-73) 90 % (31-73) Lymphocytes (%) (Auto) 3 % (24-48) 6 % (24-48) Monocytes (%) (Auto) 2 % (0-9) 5 % (0-9) Eosinophils (%) (Auto) 1 % (0-3) 0 % (0-3) Basophils (%) (Auto) 0 % (0-3) 0 % (0-3) Neutrophils # (Auto) 14.9 x10^3uL (1.8-7.7) 9.6 x10^3uL (1.8-7.7) Lymphocytes # (Auto) 0.5 x10^3/uL (1.0-4.8) 0.6 x10^3/uL (1.0-4.8) Monocytes # (Auto) 0.3 x10^3/uL (0.0-1.1) 0.5 x10^3/uL (0.0-1.1) Eosinophils # (Auto) 0.1 x10^3/uL (0.0-0.7) 0.0 x10^3/uL (0.0-0.7) Basophils # (Auto) 0.1 x10^3/uL (0.0-0.2) 0.0 x10^3/uL (0.0-0.2) Segmented Neutrophils % 77 % (35-66) Band Neutrophils % 12 % (0-9) Lymphocytes % 5 % (24-48) Monocytes % 4 % (0-10) Eosinophils % 2 % (0-5) Platelet Estimate Adequate (ADEQUATE) Sodium Level 140 mmol/L (136-145) 140 mmol/L (136-145) Potassium Level 4.0 mmol/L (3.5-5.1) 4.1 mmol/L (3.5-5.1) Chloride Level 102 mmol/L (98-107) 106 mmol/L (98-107) Carbon Dioxide Level 24 mmol/L (21-32) 20 mmol/L (21-32) Anion Gap 14 (6-14) 14 (6-14) Blood Urea Nitrogen 22 mg/dL (7-20) 21 mg/dL (7-20) Creatinine 1.2 mg/dL (0.6-1.0) 1.0 mg/dL (0.6-1.0) Estimated GFR (Cockcroft-Gault) 45.7 56.4 BUN/Creatinine Ratio 18 (6-20) 21 (6-20) Glucose Level 247 mg/dL (70-99) 160 mg/dL (70-99) Lactic Acid Level 2.2 mmol/L (0.4-2.0) 1.7 mmol/L (0.4-2.0) Calcium Level 10.0 mg/dL (8.5-10.1) 8.9 mg/dL (8.5-10.1) Total Bilirubin 0.7 mg/dL (0.2-1.0) 0.4 mg/dL (0.2-1.0) Aspartate Amino Transf (AST/SGOT) 18 U/L (15-37) 20 U/L (15-37) Alanine Aminotransferase (ALT/SGPT) 23 U/L (14-59) 24 U/L (14-59) Alkaline Phosphatase 73 U/L (46-116) 58 U/L (46-116) Troponin I Quantitative < 0.017 ng/mL (0.000-0.055) Total Protein 7.7 g/dL (6.4-8.2) 6.4 g/dL (6.4-8.2) Albumin 4.2 g/dL (3.4-5.0) 3.7 g/dL (3.4-5.0) Albumin/Globulin Ratio 1.2 (1.0-1.7) 1.4 (1.0-1.7) Lipase 104 U/L (73-393) Urine Collection Type U cath Urine Color Yellow Urine Clarity Clear Urine pH 5.5 Urine Specific [place] >=1.030 Urine Protein Negative mg/dL (NEG-TRACE) Urine Glucose (UA) >=1000 mg/dL (NEG) Urine Ketones (Stick) 40 mg/dL (NEG) Urine Blood Trace (NEG) Urine Nitrite Negative (NEG) Urine Bilirubin Negative (NEG) Urine Urobilinogen Dipstick 0.2 mg/dL (0.2 mg/dL) Urine Leukocyte Esterase Negative (NEG) Urine RBC Occ /HPF (0-2) Urine WBC 1-4 /HPF (0-4) Urine Squamous Epithelial Cells Occ /LPF Urine Bacteria Few /HPF (0-FEW) Urine Hyaline Casts Occasional /HPF Urine Mucus Marked /LPF Medications Current Medications Sodium Chloride 1,000 ml @ 1,000 mls/hr Q1H IV Last administered on at 07:53; Start 03/01/18 at 07:30; Stop 03/01/18 at 08:29; Status DC Ondansetron HCl (Zofran) 4 mg 1X ONCE IV Last administered on 03/01/18at 07:53 ; Start 03/01/18 at 07:30; Stop 03/01/18 at 07:35; Status DC Iohexol (Omnipaque 300 Mg/ml) 60 ml 1X ONCE IV Last administered on at 09:13; Start 03/01/18 at 08:45; Stop 03/01/18 at 08:48; Status DC Info (CONTRAST GIVEN -- Rx MONITORING) 1 each PRN DAILY PRN MC SEE COMMENTS; Start 03/01/18 at 09:00; Stop 03/03/18 at 08:59 Ondansetron HCl (Zofran) 4 mg 1X ONCE IV Last administered on 03/01/18at 08:57 ; Start 03/01/18 at 09:00; Stop 03/01/18 at 09:01; Status DC Sodium Chloride 1,000 ml @ 1,000 mls/hr 1X ONCE IV Last administered on 03/01at 10:19; Start 03/01/18 at 09:45; Stop 03/01/18 at 10:44; Status DC Metronidazole 100 ml @ 100 mls/hr Q8HRS IV Last administered on 03/02/18at 05: 42; Start 03/01/18 at 14:00 Ondansetron HCl (Zofran) 4 mg PRN Q8HRS PRN IV NAUSEA/VOMITING Last administered on 03/02/18at 06:53; Start 03/01/18 at 09:45; Stop 03/02/18 at 09 :44 Sodium Chloride 1,000 ml @ 125 mls/hr 1X ONCE IV Last administered on at 09:45; Start 03/01/18 at 09:45; Stop 03/01/18 at 17:44; Status DC Metronidazole 100 ml @ 100 mls/hr ONCE ONCE IV Last administered on at 10:56; Start 03/01/18 at 10:00; Stop 03/01/18 at 10:59; Status DC Aspirin (Ecotrin) 81 mg DAILY PO Last administered on 03/01/18at 14:22; Start 03/01/18 at 11:00 Lisinopril (Prinivil) 20 mg DAILY PO Last administered on 03/01/18at 14:22; Start 03/01/18 at 11:00 Oxycodone/ Acetaminophen (Percocet 5/325) 1 tab PRN QID PRN PO MODERATE TO SEVERE PAIN; Start 03/01/18 at 10:00 Naproxen (Naprosyn) 500 mg BID PO Last administered on 03/01/18at 21:02; Start 03/01/18 at 10:15 Lactobacillus Rhamnosus (Culturelle) 1 cap BID PO Last administered on at 21:01; Start 03/01/18 at 11:00 Multivitamins (Thera M Plus) 1 tab DAILY PO Last administered on 03/01/18at 14: 23; Start 03/01/18 at 11:00 Sucralfate (Carafate) 1 gm QIDACHS PO Last administered on 03/01/18at 21:02; Start 03/01/18 at 11:30 Acetaminophen (Tylenol) 500 mg PRN Q6HRS PRN PO MILD PAIN / TEMP; Start at 10:15 Acetaminophen/ Codeine Phosphate (Tylenol #3) 1 tab PRN Q6HRS PRN PO MODERATE PAIN; Start 03/01/18 at 10:15 Famotidine (Pepcid Vial) 20 mg QHS IVP Last administered on 03/01/18at 21:02; Start 03/01/18 at 21:00 Morphine Sulfate (Morphine Sulfate) 2 mg PRN Q2HR PRN IV PAIN; Start 03/01/18 at 10:15; Stop 03/01/18 at 13:48; Status DC Sodium Chloride 1,000 ml @ 100 mls/hr Q10H IV Last administered on 03/02/18at 05:42; Start 03/01/18 at 10:15 Labetalol HCl (Normodyne Iv Push) 10 mg PRN Q2HR PRN IVP HYPERTENSION, SEE COMMENTS; Start 03/01/18 at 10:15 Morphine Sulfate (Morphine Sulfate) 2 mg PRN Q2HR PRN IV PAIN Last administered on 03/01/18at 14:09; Start 03/01/18 at 13:48 Influenza Virus Vaccine (Afluria Trivalent [id number] Syringe) 0.5 ml ONCE ONCE VAX IM Last administered on 03/01/18at 17:43; Start 03/01/18 at 18:00; Stop 03/01/18 at 18:01; Status DC Active Scripts Active Naproxen 500 Mg Tablet 500 Mg PO BID Percocet 5-325 Mg Tablet (Oxycodone/Acetaminophen) 1 Each Tablet 1-2 Tab PO Q4-6HRS Reported Acidophilus (Lactobacillus Acidophilus) 1 Each Tablet 1 Each PO Centrum Silver Tablet (Multivits-Min/Fa/Lycopene/Lut) 1 Each Tablet 1 Each PO Probiotic (Lactobacillus Combo No.10) 1 Each Capsule 1 Each PO Carafate (Sucralfate) 1 Gm Tablet 1 Gm PO Aspir-Low (Aspirin) 81 Mg Tablet. 81 Mg PO Lisinopril 20 Mg Tablet 20 Mg PO DAILY Vitals/I & O Vital Sign - Last 24 Hours 03/01/18 03/01/18 03/01/18 03/01/18 07:55 09:22 09:45 10:58 Pulse 56 71 64 68 Resp 14 16 18 B/P (MAP) 166/74 (104) 177/79 (111) 191/74 (113) 187/81 (116) Pulse Ox 97 99 100 97 O2 Delivery Room Air Room Air Room Air 03/01/18 03/01/18 03/01/18 03/01/18 14:09 14:22 14:39 15:22 Temp 98.2 98.2 Pulse 68 55 Resp 18 B/P (MAP) 187/81 135/66 (89) Pulse Ox 98 O2 Delivery Room Air Room Air Room Air 03/01/18 03/01/18 03/01/18 03/01/18 15:26 19:00 20:00 23:00 Temp 98.5 98.3 98.5 98.3 Pulse 59 53 Resp 18 18 B/P (MAP) 135/66 (89) 143/67 (92) Pulse Ox 100 100 O2 Delivery Room Air Room Air Room Air Room Air 03/02/18 03/02/18 03:00 06:58 Temp 98.1 98.5 98.1 98.5 Pulse 53 68 Resp 18 18 B/P (MAP) 121/51 (74) 157/58 (91) Pulse Ox 97 99 O2 Delivery Room Air Room Air Intake and Output 03/01/18 03/01/18 03/02/18 15:01 23:01 07:01 Intake Total 250 ml 200 ml 1000 ml Balance 250 ml 200 ml 1000 ml Problem List Problems Medical Problems: (1) Colitis Status: Acute (2) Intractable nausea and vomiting Status: Acute (3) Leukocytosis Status: Acute Assessment Abd pain- with colitis, etiology to be determined. Infectious source leads differential. New onset IBD,ischemic colitis, and/or colon cancer in differential as well. Plan fluids/antibiotics pending culture results interval Ct scan if no improvement and/or colonoscopy MARYA FREIRE MD Mar 02, 2018 07:32
[2018-03-02] MEDS: SUCRALFATE 1 GM TABLET. PO SCH ×4 (08:05→20:56)
[2018-03-02] MEDS: LACTOBACILLUS RHAMNOSUS GG 1 CAPSULE. PO SCH ×2 (08:05→20:56)
[2018-03-02] MEDS: ASPIRIN ENTERIC COATED 81 MG TABLET.DR. PO SCH (08:05)
[2018-03-02] MEDS: MULTIVITAMIN with MINERAL TABLET. PO SCH (08:05)
[2018-03-02] MEDS: LISINOPRIL 20 MG TABLET PO SCH (08:05)
[2018-03-02] MEDS: NAPROXEN 500 MG TABLET PO SCH ×2 (08:06→20:56)
[2018-03-02 08:16] LABS: FECAL OB PT POSITIVE (NEG)
[2018-03-02] MEDS ORDERED: LOPERAMIDE 2 MG CAPSULE PO PRN (09:45)
[2018-03-02 11:07] VITALS: BP 159/59
--- NOTE | 2018-03-02 11:46 | PDOC ---
PROGRESS NOTES Chief Complaint Chief Complaint Descending colon and sigmoid colitis- History of colitis in the past Never had a colonoscopy SIRS POA Mild PCM Elevated lactate/leukocytosis-even sepsis with no organ dysfunction POA AK I VMN secondary to GI loss History of Present Illness History of Present Illness Still very nauseated, but has not vomited Diarrhea has come down, so far 1 stool and has some solid component to it Is not ready for regular diet Appreciate GI and note has been reviewed Plan for interval CAT scan or colonoscopy if no improvement Plan: Back down to liquid diet Continue IV antibiotics and antinausea meds So far ambulating okay She knows the plan of colonoscopy or interval CAT scan if symptoms do not improve Discussed with at bedside Vitals Vitals Vital Signs Date Time Temp Pulse Resp B/P (MAP) Pulse Ox O2 Delivery O2 Flow Rate FiO2 03/02/18 11:07 97.7 56 16 159/59 (92) 99 Room Air 97.7 Physical Exam General: Alert, Oriented X3, Cooperative, No acute distress, Other (looks sick , bucket at bedside) Heart: Regular rate, Normal S1, No murmurs Lungs: Clear Abdomen: Soft, Other (hyperactive bowel sounds, tenderness periumbilical area but no guarding or rebound) Extremities: No clubbing, No cyanosis, No edema, Normal pulses, No tenderness/ swelling Skin: No rashes, No breakdown, No significant lesion Labs LABS Laboratory Tests Test 03/02/18 05:00 03/02/18 05:15 Stool Occult Blood Positive (NEG) White Blood Count 10.7 x10^3/uL (4.0-11.0) Red Blood Count 3.54 x10^6/uL (3.50-5.40) Hemoglobin 10.5 g/dL (12.0-15.5) Hematocrit 31.4 % (36.0-47.0) Mean Corpuscular Volume 89 fL (79-100) Mean Corpuscular Hemoglobin 30 pg (25-35) Mean Corpuscular Hemoglobin Concent 34 g/dL (31-37) Red Cell Distribution Width 13.7 % (11.5-14.5) Platelet Count 164 x10^3/uL (140-400) Neutrophils (%) (Auto) 90 % (31-73) Lymphocytes (%) (Auto) 6 % (24-48) Monocytes (%) (Auto) 5 % (0-9) Eosinophils (%) (Auto) 0 % (0-3) Basophils (%) (Auto) 0 % (0-3) Neutrophils # (Auto) 9.6 x10^3uL (1.8-7.7) Lymphocytes # (Auto) 0.6 x10^3/uL (1.0-4.8) Monocytes # (Auto) 0.5 x10^3/uL (0.0-1.1) Eosinophils # (Auto) 0.0 x10^3/uL (0.0-0.7) Basophils # (Auto) 0.0 x10^3/uL (0.0-0.2) Sodium Level 140 mmol/L (136-145) Potassium Level 4.1 mmol/L (3.5-5.1) Chloride Level 106 mmol/L (98-107) Carbon Dioxide Level 20 mmol/L (21-32) Anion Gap 14 (6-14) Blood Urea Nitrogen 21 mg/dL (7-20) Creatinine 1.0 mg/dL (0.6-1.0) Estimated GFR (Cockcroft-Gault) 56.4 BUN/Creatinine Ratio 21 (6-20) Glucose Level 160 mg/dL (70-99) Lactic Acid Level 1.7 mmol/L (0.4-2.0) Calcium Level 8.9 mg/dL (8.5-10.1) Total Bilirubin 0.4 mg/dL (0.2-1.0) Aspartate Amino Transf (AST/SGOT) 20 U/L (15-37) Alanine Aminotransferase (ALT/SGPT) 24 U/L (14-59) Alkaline Phosphatase 58 U/L (46-116) Total Protein 6.4 g/dL (6.4-8.2) Albumin 3.7 g/dL (3.4-5.0) Albumin/Globulin Ratio 1.4 (1.0-1.7) Review of Systems Review of Systems Nauseated, weak, otherwise rest of ROS 14 point negative Assessment and Plan Assessmemt and Plan Problems Medical Problems: (1) Colitis Status: Acute (2) Intractable nausea and vomiting Status: Acute (3) Leukocytosis Status: Acute Comment Review of Relevant I have reviewed the following items jamilah (where applicable) has been applied. Labs Laboratory Tests Test 03/01/18 07:30 12/25/18 07:38 03/01/18 08:25 03/02/18 05:00 Erythrocyte Sedimentation Rate 15 (0-25) White Blood Count 15.9 x10^3/uL (4.0-11.0) Red Blood Count 4.13 x10^6/uL (3.50-5.40) Hemoglobin 12.4 g/dL (12.0-15.5) Hematocrit 36.0 % (36.0-47.0) Mean Corpuscular Volume 87 fL (79-100) Mean Corpuscular Hemoglobin 30 pg (25-35) Mean Corpuscular Hemoglobin Concent 34 g/dL (31-37) Red Cell Distribution Width 13.5 % (11.5-14.5) Platelet Count 236 x10^3/uL (140-400) Neutrophils (%) (Auto) 94 % (31-73) Lymphocytes (%) (Auto) 3 % (24-48) Monocytes (%) (Auto) 2 % (0-9) Eosinophils (%) (Auto) 1 % (0-3) Basophils (%) (Auto) 0 % (0-3) Neutrophils # (Auto) 14.9 x10^3uL (1.8-7.7) Lymphocytes # (Auto) 0.5 x10^3/uL (1.0-4.8) Monocytes # (Auto) 0.3 x10^3/uL (0.0-1.1) Eosinophils # (Auto) 0.1 x10^3/uL (0.0-0.7) Basophils # (Auto) 0.1 x10^3/uL (0.0-0.2) Segmented Neutrophils % 77 % (35-66) Band Neutrophils % 12 % (0-9) Lymphocytes % 5 % (24-48) Monocytes % 4 % (0-10) Eosinophils % 2 % (0-5) Platelet Estimate Adequate (ADEQUATE) Sodium Level 140 mmol/L (136-145) Potassium Level 4.0 mmol/L (3.5-5.1) Chloride Level 102 mmol/L (98-107) Carbon Dioxide Level 24 mmol/L (21-32) Anion Gap 14 (6-14) Blood Urea Nitrogen 22 mg/dL (7-20) Creatinine 1.2 mg/dL (0.6-1.0) Estimated GFR (Cockcroft-Gault) 45.7 BUN/Creatinine Ratio 18 (6-20) Glucose Level 247 mg/dL (70-99) Lactic Acid Level 2.2 mmol/L (0.4-2.0) Calcium Level 10.0 mg/dL (8.5-10.1) Total Bilirubin 0.7 mg/dL (0.2-1.0) Aspartate Amino Transf (AST/SGOT) 18 U/L (15-37) Alanine Aminotransferase (ALT/SGPT) 23 U/L (14-59) Alkaline Phosphatase 73 U/L (46-116) Troponin I Quantitative < 0.017 ng/mL (0.000-0.055) Total Protein 7.7 g/dL (6.4-8.2) Albumin 4.2 g/dL (3.4-5.0) Albumin/Globulin Ratio 1.2 (1.0-1.7) Lipase 104 U/L (73-393) Urine Collection Type U cath Urine Color Yellow Urine Clarity Clear Urine pH 5.5 Urine Specific [place] >=1.030 Urine Protein Negative mg/dL (NEG-TRACE) Urine Glucose (UA) >=1000 mg/dL (NEG) Urine Ketones (Stick) 40 mg/dL (NEG) Urine Blood Trace (NEG) Urine Nitrite Negative (NEG) Urine Bilirubin Negative (NEG) Urine Urobilinogen Dipstick 0.2 mg/dL (0.2 mg/dL) Urine Leukocyte Esterase Negative (NEG) Urine RBC Occ /HPF (0-2) Urine WBC 1-4 /HPF (0-4) Urine Squamous Epithelial Cells Occ /LPF Urine Bacteria Few /HPF (0-FEW) Urine Hyaline Casts Occasional /HPF Urine Mucus Marked /LPF Stool Occult Blood Positive (NEG) Test 03/02/18 05:15 White Blood Count 10.7 x10^3/uL (4.0-11.0) Red Blood Count 3.54 x10^6/uL (3.50-5.40) Hemoglobin 10.5 g/dL (12.0-15.5) Hematocrit 31.4 % (36.0-47.0) Mean Corpuscular Volume 89 fL (79-100) Mean Corpuscular Hemoglobin 30 pg (25-35) Mean Corpuscular Hemoglobin Concent 34 g/dL (31-37) Red Cell Distribution Width 13.7 % (11.5-14.5) Platelet Count 164 x10^3/uL (140-400) Neutrophils (%) (Auto) 90 % (31-73) Lymphocytes (%) (Auto) 6 % (24-48) Monocytes (%) (Auto) 5 % (0-9) Eosinophils (%) (Auto) 0 % (0-3) Basophils (%) (Auto) 0 % (0-3) Neutrophils # (Auto) 9.6 x10^3uL (1.8-7.7) Lymphocytes # (Auto) 0.6 x10^3/uL (1.0-4.8) Monocytes # (Auto) 0.5 x10^3/uL (0.0-1.1) Eosinophils # (Auto) 0.0 x10^3/uL (0.0-0.7) Basophils # (Auto) 0.0 x10^3/uL (0.0-0.2) Sodium Level 140 mmol/L (136-145) Potassium Level 4.1 mmol/L (3.5-5.1) Chloride Level 106 mmol/L (98-107) Carbon Dioxide Level 20 mmol/L (21-32) Anion Gap 14 (6-14) Blood Urea Nitrogen 21 mg/dL (7-20) Creatinine 1.0 mg/dL (0.6-1.0) Estimated GFR (Cockcroft-Gault) 56.4 BUN/Creatinine Ratio 21 (6-20) Glucose Level 160 mg/dL (70-99) Lactic Acid Level 1.7 mmol/L (0.4-2.0) Calcium Level 8.9 mg/dL (8.5-10.1) Total Bilirubin 0.4 mg/dL (0.2-1.0) Aspartate Amino Transf (AST/SGOT) 20 U/L (15-37) Alanine Aminotransferase (ALT/SGPT) 24 U/L (14-59) Alkaline Phosphatase 58 U/L (46-116) Total Protein 6.4 g/dL (6.4-8.2) Albumin 3.7 g/dL (3.4-5.0) Albumin/Globulin Ratio 1.4 (1.0-1.7) Laboratory Tests Test 03/02/18 05:00 03/02/18 05:15 Stool Occult Blood Positive (NEG) White Blood Count 10.7 x10^3/uL (4.0-11.0) Red Blood Count 3.54 x10^6/uL (3.50-5.40) Hemoglobin 10.5 g/dL (12.0-15.5) Hematocrit 31.4 % (36.0-47.0) Mean Corpuscular Volume 89 fL (79-100) Mean Corpuscular Hemoglobin 30 pg (25-35) Mean Corpuscular Hemoglobin Concent 34 g/dL (31-37) Red Cell Distribution Width 13.7 % (11.5-14.5) Platelet Count 164 x10^3/uL (140-400) Neutrophils (%) (Auto) 90 % (31-73) Lymphocytes (%) (Auto) 6 % (24-48) Monocytes (%) (Auto) 5 % (0-9) Eosinophils (%) (Auto) 0 % (0-3) Basophils (%) (Auto) 0 % (0-3) Neutrophils # (Auto) 9.6 x10^3uL (1.8-7.7) Lymphocytes # (Auto) 0.6 x10^3/uL (1.0-4.8) Monocytes # (Auto) 0.5 x10^3/uL (0.0-1.1) Eosinophils # (Auto) 0.0 x10^3/uL (0.0-0.7) Basophils # (Auto) 0.0 x10^3/uL (0.0-0.2) Sodium Level 140 mmol/L (136-145) Potassium Level 4.1 mmol/L (3.5-5.1) Chloride Level 106 mmol/L (98-107) Carbon Dioxide Level 20 mmol/L (21-32) Anion Gap 14 (6-14) Blood Urea Nitrogen 21 mg/dL (7-20) Creatinine 1.0 mg/dL (0.6-1.0) Estimated GFR (Cockcroft-Gault) 56.4 BUN/Creatinine Ratio 21 (6-20) Glucose Level 160 mg/dL (70-99) Lactic Acid Level 1.7 mmol/L (0.4-2.0) Calcium Level 8.9 mg/dL (8.5-10.1) Total Bilirubin 0.4 mg/dL (0.2-1.0) Aspartate Amino Transf (AST/SGOT) 20 U/L (15-37) Alanine Aminotransferase (ALT/SGPT) 24 U/L (14-59) Alkaline Phosphatase 58 U/L (46-116) Total Protein 6.4 g/dL (6.4-8.2) Albumin 3.7 g/dL (3.4-5.0) Albumin/Globulin Ratio 1.4 (1.0-1.7) Medications Current Medications Sodium Chloride 1,000 ml @ 1,000 mls/hr Q1H IV Last administered on at 07:53; Start 03/01/18 at 07:30; Stop 03/01/18 at 08:29; Status DC Ondansetron HCl (Zofran) 4 mg 1X ONCE IV Last administered on 03/01/18at 07:53 ; Start 03/01/18 at 07:30; Stop 03/01/18 at 07:35; Status DC Iohexol (Omnipaque 300 Mg/ml) 60 ml 1X ONCE IV Last administered on at 09:13; Start 03/01/18 at 08:45; Stop 03/01/18 at 08:48; Status DC Info (CONTRAST GIVEN -- Rx MONITORING) 1 each PRN DAILY PRN MC SEE COMMENTS; Start 03/01/18 at 09:00; Stop 03/03/18 at 08:59 Ondansetron HCl (Zofran) 4 mg 1X ONCE IV Last administered on 03/01/18at 08:57 ; Start 03/01/18 at 09:00; Stop 03/01/18 at 09:01; Status DC Sodium Chloride 1,000 ml @ 1,000 mls/hr 1X ONCE IV Last administered on 03/01at 10:19; Start 03/01/18 at 09:45; Stop 03/01/18 at 10:44; Status DC Metronidazole 100 ml @ 100 mls/hr Q8HRS IV Last administered on 03/02/18at 05: 42; Start 03/01/18 at 14:00 Ondansetron HCl (Zofran) 4 mg PRN Q8HRS PRN IV NAUSEA/VOMITING Last administered on 03/02/18at 06:53; Start 03/01/18 at 09:45; Stop 03/02/18 at 09 :44; Status DC Sodium Chloride 1,000 ml @ 125 mls/hr 1X ONCE IV Last administered on at 09:45; Start 03/01/18 at 09:45; Stop 03/01/18 at 17:44; Status DC Metronidazole 100 ml @ 100 mls/hr ONCE ONCE IV Last administered on at 10:56; Start 03/01/18 at 10:00; Stop 03/01/18 at 10:59; Status DC Aspirin (Ecotrin) 81 mg DAILY PO Last administered on 03/02/18at 08:05; Start 03/01/18 at 11:00 Lisinopril (Prinivil) 20 mg DAILY PO Last administered on 03/02/18at 08:05; Start 03/01/18 at 11:00 Oxycodone/ Acetaminophen (Percocet 5/325) 1 tab PRN QID PRN PO MODERATE TO SEVERE PAIN; Start 03/01/18 at 10:00 Naproxen (Naprosyn) 500 mg BID PO Last administered on 03/02/18at 08:06; Start 03/01/18 at 10:15 Lactobacillus Rhamnosus (Culturelle) 1 cap BID PO Last administered on at 08:05; Start 03/01/18 at 11:00 Multivitamins (Thera M Plus) 1 tab DAILY PO Last administered on 03/02/18at 08: 05; Start 03/01/18 at 11:00 Sucralfate (Carafate) 1 gm QIDACHS PO Last administered on 03/02/18at 11:37; Start 03/01/18 at 11:30 Acetaminophen (Tylenol) 500 mg PRN Q6HRS PRN PO MILD PAIN / TEMP; Start at 10:15 Acetaminophen/ Codeine Phosphate (Tylenol #3) 1 tab PRN Q6HRS PRN PO MODERATE PAIN; Start 03/01/18 at 10:15 Famotidine (Pepcid Vial) 20 mg QHS IVP Last administered on 03/01/18at 21:02; Start 03/01/18 at 21:00 Morphine Sulfate (Morphine Sulfate) 2 mg PRN Q2HR PRN IV PAIN; Start 03/01/18 at 10:15; Stop 03/01/18 at 13:48; Status DC Sodium Chloride 1,000 ml @ 100 mls/hr Q10H IV Last administered on 03/02/18at 05:42; Start 03/01/18 at 10:15 Labetalol HCl (Normodyne Iv Push) 10 mg PRN Q2HR PRN IVP HYPERTENSION, SEE COMMENTS; Start 03/01/18 at 10:15 Morphine Sulfate (Morphine Sulfate) 2 mg PRN Q2HR PRN IV PAIN Last administered on 03/01/18at 14:09; Start 03/01/18 at 13:48 Influenza Virus Vaccine (Afluria Trivalent [id number] Syringe) 0.5 ml ONCE ONCE VAX IM Last administered on 03/01/18at 17:43; Start 03/01/18 at 18:00; Stop 03/01/18 at 18:01; Status DC Loperamide HCl (Imodium) 2 mg PRN Q15MIN PRN PO DIARRHEA; Start 03/02/18 at 09 :45 Active Scripts Active Naproxen 500 Mg Tablet 500 Mg PO BID Percocet 5-325 Mg Tablet (Oxycodone/Acetaminophen) 1 Each Tablet 1-2 Tab PO Q4-6HRS Reported Acidophilus (Lactobacillus Acidophilus) 1 Each Tablet 1 Each PO Centrum Silver Tablet (Multivits-Min/Fa/Lycopene/Lut) 1 Each Tablet 1 Each PO Probiotic (Lactobacillus Combo No.10) 1 Each Capsule 1 Each PO Carafate (Sucralfate) 1 Gm Tablet 1 Gm PO Aspir-Low (Aspirin) 81 Mg Tablet.dr 81 Mg PO Lisinopril 20 Mg Tablet 20 Mg PO DAILY Vitals/I & O Vital Sign - Last 24 Hours 03/01/18 03/01/18 03/01/18 03/01/18 14:09 14:22 14:39 15:22 Temp 98.2 98.2 Pulse 68 55 Resp 18 B/P (MAP) 187/81 135/66 (89) Pulse Ox 98 O2 Delivery Room Air Room Air Room Air 03/01/18 03/01/18 03/01/18 03/01/18 15:26 19:00 20:00 23:00 Temp 98.5 98.3 98.5 98.3 Pulse 59 53 Resp 18 18 B/P (MAP) 135/66 (89) 143/67 (92) Pulse Ox 100 100 O2 Delivery Room Air Room Air Room Air Room Air 03/02/18 03/02/18 03/02/18 03/02/18 03:00 06:58 08:05 11:07 Temp 98.1 98.5 97.7 98.1 98.5 97.7 Pulse 53 68 68 56 Resp 18 18 16 B/P (MAP) 121/51 (74) 157/58 (91) 157/58 159/59 (92) Pulse Ox 97 99 99 O2 Delivery Room Air Room Air Room Air Intake and Output 03/01/18 03/01/18 03/02/18 15:01 23:01 07:01 Intake Total 250 ml 200 ml 1000 ml Balance 250 ml 200 ml 1000 ml TR MALLOY MD Mar 02, 2018 11:46
[2018-03-02 14:56] VITALS: BP 155/68
[2018-03-02 19:00] VITALS: BP 171/68
[2018-03-02] MEDS: FAMOTIDINE 20 MG/2 ML VIAL IVP SCH (20:57)
[2018-03-02] MEDS: PROCHLORPERAZINE 10 MG/2 ML VIAL. IV PRN (20:57)
[2018-03-02 23:00] VITALS: BP 160/67
[2018-03-03] MEDS: PROCHLORPERAZINE 10 MG/2 ML VIAL. IV PRN ×2 (02:47→09:13)
[2018-03-03] MEDS: IV NORMAL SALINE 1000ML BAG 1,000 ML IV SCH ×3 (02:47→21:01)
[2018-03-03 03:00] VITALS: BP 162/73
[2018-03-03 07:00] VITALS: BP 160/60
[2018-03-03] MEDS: SUCRALFATE 1 GM TABLET. PO SCH ×4 (07:41→21:01)
[2018-03-03] MEDS: ONDANSETRON PF 4 MG/2 ML VIAL. IV PRN (07:41)
[2018-03-03] MEDS: MULTIVITAMIN with MINERAL TABLET. PO SCH (09:12)
[2018-03-03] MEDS: LACTOBACILLUS RHAMNOSUS GG 1 CAPSULE. PO SCH ×2 (09:12→21:01)
[2018-03-03] MEDS: LISINOPRIL 20 MG TABLET PO SCH (09:13)
[2018-03-03] MEDS: NAPROXEN 500 MG TABLET PO SCH ×2 (09:13→21:01)
[2018-03-03] MEDS: ASPIRIN ENTERIC COATED 81 MG TABLET.DR. PO SCH (09:17)
--- NOTE | 2018-03-03 10:18 | PDOC ---
PROGRESS NOTES Chief Complaint Chief Complaint Descending colon and sigmoid colitis- History of colitis in the past Never had a colonoscopy SIRS POA Mild PCM Elevated lactate/leukocytosis-even sepsis with no organ dysfunction POA AK I VMN secondary to GI loss History of Present Illness History of Present Illness Still nauseated but no emesis So far no diarrhea for the last 24 hours No fever, normal white count But Decreased by mouth, less than 50% of tray per staff Plan: Await GI Rounds, she does not wish to DC yet today but I did say possibly tomorrow since still nauseus and poor PO Continue IVF for now Possible dc tmr if PO intake inc and less nauseus Vitals Vitals Vital Signs Date Time Temp Pulse Resp B/P (MAP) Pulse Ox O2 Delivery O2 Flow Rate FiO2 03/03/18 09:13 66 160/60 03/03/18 07:43 Room Air 03/03/18 07:00 98.5 18 93 98.5 Physical Exam General: Alert, Oriented X3, Cooperative, No acute distress, Other (looks sick , bucket at bedside) Heart: Regular rate, Normal S1, No murmurs Lungs: Clear Abdomen: Soft, Other (hyperactive bowel sounds, tenderness periumbilical area but no guarding or rebound) Extremities: No clubbing, No cyanosis, No edema, Normal pulses, No tenderness/ swelling Skin: No rashes, No breakdown, No significant lesion Review of Systems Review of Systems Nauseated, no emesis, no diarrhea, minor abdominal pain, no chest pain Assessment and Plan Assessmemt and Plan Problems Medical Problems: (1) Colitis Status: Acute (2) Intractable nausea and vomiting Status: Acute (3) Leukocytosis Status: Acute Comment Review of Relevant I have reviewed the following items jamilah (where applicable) has been applied. Labs Laboratory Tests Test 03/02/18 05:00 03/02/18 05:15 Stool Occult Blood Positive (NEG) White Blood Count 10.7 x10^3/uL (4.0-11.0) Red Blood Count 3.54 x10^6/uL (3.50-5.40) Hemoglobin 10.5 g/dL (12.0-15.5) Hematocrit 31.4 % (36.0-47.0) Mean Corpuscular Volume 89 fL (79-100) Mean Corpuscular Hemoglobin 30 pg (25-35) Mean Corpuscular Hemoglobin Concent 34 g/dL (31-37) Red Cell Distribution Width 13.7 % (11.5-14.5) Platelet Count 164 x10^3/uL (140-400) Neutrophils (%) (Auto) 90 % (31-73) Lymphocytes (%) (Auto) 6 % (24-48) Monocytes (%) (Auto) 5 % (0-9) Eosinophils (%) (Auto) 0 % (0-3) Basophils (%) (Auto) 0 % (0-3) Neutrophils # (Auto) 9.6 x10^3uL (1.8-7.7) Lymphocytes # (Auto) 0.6 x10^3/uL (1.0-4.8) Monocytes # (Auto) 0.5 x10^3/uL (0.0-1.1) Eosinophils # (Auto) 0.0 x10^3/uL (0.0-0.7) Basophils # (Auto) 0.0 x10^3/uL (0.0-0.2) Sodium Level 140 mmol/L (136-145) Potassium Level 4.1 mmol/L (3.5-5.1) Chloride Level 106 mmol/L (98-107) Carbon Dioxide Level 20 mmol/L (21-32) Anion Gap 14 (6-14) Blood Urea Nitrogen 21 mg/dL (7-20) Creatinine 1.0 mg/dL (0.6-1.0) Estimated GFR (Cockcroft-Gault) 56.4 BUN/Creatinine Ratio 21 (6-20) Glucose Level 160 mg/dL (70-99) Lactic Acid Level 1.7 mmol/L (0.4-2.0) Calcium Level 8.9 mg/dL (8.5-10.1) Total Bilirubin 0.4 mg/dL (0.2-1.0) Aspartate Amino Transf (AST/SGOT) 20 U/L (15-37) Alanine Aminotransferase (ALT/SGPT) 24 U/L (14-59) Alkaline Phosphatase 58 U/L (46-116) Total Protein 6.4 g/dL (6.4-8.2) Albumin 3.7 g/dL (3.4-5.0) Albumin/Globulin Ratio 1.4 (1.0-1.7) Medications Current Medications Sodium Chloride 1,000 ml @ 1,000 mls/hr Q1H IV Last administered on at 07:53; Start 03/01/18 at 07:30; Stop 03/01/18 at 08:29; Status DC Ondansetron HCl (Zofran) 4 mg 1X ONCE IV Last administered on 03/01/18at 07:53 ; Start 03/01/18 at 07:30; Stop 03/01/18 at 07:35; Status DC Iohexol (Omnipaque 300 Mg/ml) 60 ml 1X ONCE IV Last administered on at 09:13; Start 03/01/18 at 08:45; Stop 03/01/18 at 08:48; Status DC Info (CONTRAST GIVEN -- Rx MONITORING) 1 each PRN DAILY PRN MC SEE COMMENTS; Start 03/01/18 at 09:00; Stop 03/03/18 at 08:59; Status DC Ondansetron HCl (Zofran) 4 mg 1X ONCE IV Last administered on 03/01/18at 08:57 ; Start 03/01/18 at 09:00; Stop 03/01/18 at 09:01; Status DC Sodium Chloride 1,000 ml @ 1,000 mls/hr 1X ONCE IV Last administered on 03/01at 10:19; Start 03/01/18 at 09:45; Stop 03/01/18 at 10:44; Status DC Metronidazole 100 ml @ 100 mls/hr Q8HRS IV Last administered on 03/03/18at 06: 02; Start 03/01/18 at 14:00 Ondansetron HCl (Zofran) 4 mg PRN Q8HRS PRN IV NAUSEA/VOMITING Last administered on 03/02/18at 06:53; Start 03/01/18 at 09:45; Stop 03/02/18 at 09 :44; Status DC Sodium Chloride 1,000 ml @ 125 mls/hr 1X ONCE IV Last administered on at 09:45; Start 03/01/18 at 09:45; Stop 03/01/18 at 17:44; Status DC Metronidazole 100 ml @ 100 mls/hr ONCE ONCE IV Last administered on at 10:56; Start 03/01/18 at 10:00; Stop 03/01/18 at 10:59; Status DC Aspirin (Ecotrin) 81 mg DAILY PO Last administered on 03/03/18at 09:17; Start 03/01/18 at 11:00 Lisinopril (Prinivil) 20 mg DAILY PO Last administered on 03/03/18at 09:13; Start 03/01/18 at 11:00 Oxycodone/ Acetaminophen (Percocet 5/325) 1 tab PRN QID PRN PO SEVERE PAIN; Start 03/01/18 at 10:00 Naproxen (Naprosyn) 500 mg BID PO Last administered on 03/03/18at 09:13; Start 03/01/18 at 10:15 Lactobacillus Rhamnosus (Culturelle) 1 cap BID PO Last administered on at 09:12; Start 03/01/18 at 11:00 Multivitamins (Thera M Plus) 1 tab DAILY PO Last administered on 03/03/18at 09: 12; Start 03/01/18 at 11:00 Sucralfate (Carafate) 1 gm QIDACHS PO Last administered on 03/03/18at 07:41; Start 03/01/18 at 11:30 Acetaminophen (Tylenol) 500 mg PRN Q6HRS PRN PO MILD PAIN / TEMP; Start at 10:15 Acetaminophen/ Codeine Phosphate (Tylenol #3) 1 tab PRN Q6HRS PRN PO MODERATE PAIN; Start 03/01/18 at 10:15 Famotidine (Pepcid Vial) 20 mg QHS IVP Last administered on 03/02/18at 20:57; Start 03/01/18 at 21:00 Morphine Sulfate (Morphine Sulfate) 2 mg PRN Q2HR PRN IV PAIN; Start 03/01/18 at 10:15; Stop 03/01/18 at 13:48; Status DC Sodium Chloride 1,000 ml @ 100 mls/hr Q10H IV Last administered on 03/03/18at 02:47; Start 03/01/18 at 10:15 Labetalol HCl (Normodyne Iv Push) 10 mg PRN Q2HR PRN IVP HYPERTENSION, SEE COMMENTS; Start 03/01/18 at 10:15 Morphine Sulfate (Morphine Sulfate) 2 mg PRN Q2HR PRN IV PAIN Last administered on 03/01/18at 14:09; Start 03/01/18 at 13:48 Influenza Virus Vaccine (Afluria Trivalent [id number] Syringe) 0.5 ml ONCE ONCE VAX IM Last administered on 03/01/18at 17:43; Start 03/01/18 at 18:00; Stop 03/01/18 at 18:01; Status DC Loperamide HCl (Imodium) 2 mg PRN Q15MIN PRN PO DIARRHEA; Start 03/02/18 at 09 :45 Ondansetron HCl (Zofran) 4 mg PRN Q6HRS PRN IV NAUSEA/VOMITING, 1st CHOICE Last administered on 03/03/18at 07:41; Start 03/02/18 at 16:15 Prochlorperazine Edisylate (Compazine) 10 mg PRN Q6HRS PRN IV NAUSEA/VOMITING, 2nd CHOICE Last administered on 03/03/18at 09:13; Start 03/02/18 at 16:15 Active Scripts Active Naproxen 500 Mg Tablet 500 Mg PO BID Percocet 5-325 Mg Tablet (Oxycodone/Acetaminophen) 1 Each Tablet 1-2 Tab PO Q4-6HRS Reported Acidophilus (Lactobacillus Acidophilus) 1 Each Tablet 1 Each PO Centrum Silver Tablet (Multivits-Min/Fa/Lycopene/Lut) 1 Each Tablet 1 Each PO Probiotic (Lactobacillus Combo No.10) 1 Each Capsule 1 Each PO Carafate (Sucralfate) 1 Gm Tablet 1 Gm PO Aspir-Low (Aspirin) 81 Mg Tablet.dr 81 Mg PO Lisinopril 20 Mg Tablet 20 Mg PO DAILY Vitals/I & O Vital Sign - Last 24 Hours 03/02/18 03/02/18 03/02/18 03/02/18 11:07 14:56 19:00 20:00 Temp 97.7 97.7 98.8 97.7 97.7 98.8 Pulse 56 60 60 Resp 16 16 18 B/P (MAP) 159/59 (92) 155/68 (97) 171/68 (102) Pulse Ox 99 96 100 O2 Delivery Room Air Room Air Room Air Room Air 03/02/18 03/03/18 03/03/18 03/03/18 23:00 03:00 07:00 07:43 Temp 99.3 98.4 98.5 99.3 98.4 98.5 Pulse 63 59 66 Resp 18 18 B/P (MAP) 160/67 (98) 162/73 (102) 160/60 (93) Pulse Ox 93 94 93 O2 Delivery Room Air Room Air Room Air Room Air 03/03/18 09:13 Pulse 66 B/P (MAP) 160/60 Intake and Output 03/02/18 03/02/18 03/03/18 15:01 23:01 07:01 Intake Total 200 ml 600 ml Balance 200 ml 600 ml RT MALLOY MD Mar 03, 2018 10:18
[2018-03-03 11:00] VITALS: BP 122/56
--- NOTE | 2018-03-03 13:27 | PDOC ---
Subjective: Subjective: Attempting clears but very nauseated. Denies abd pain and diarrhea but feels bloated. Losing insurance at the end of this year, wants as much done while she's here as possible. Objective: Objective: D/w RN this morning - pt wants inpt colonoscopy. Vital Signs: Vital Signs Date Time Temp Pulse Resp B/P (MAP) Pulse Ox O2 Delivery O2 Flow Rate FiO2 03/03/18 11:00 99.2 62 14 122/56 (78) 96 Room Air 99.2 PE: GEN: NAD LUNGS: CTAB HEART: RRR ABD: quiet, soft, not particularly tender NEURO/PSYCH: A & O 3 A/P: Nausea Abd pain and diarrhea - resolved Abnormal CT - diffuse long segment wall thickening of the descending colon and sigmoid colon Anemia, fecal occult positive DM S/p Mauro fundoplication CRC screen - none -- On IV Flagyl and famotidine and Carafate, stool studies cancelled. Also on ASA and Naproxen w/ plans to advance to full liquids. Previous recommendations for outpt 'scopes. CHARLEY NOEL Mar 03, 2018 13:26
[2018-03-03] MEDS: PANTOPRAZOLE 40 MG TABLET.DR. PO SCH (14:02)
[2018-03-03 15:00] VITALS: BP 144/58
[2018-03-03 19:00] VITALS: BP 149/81
[2018-03-03 22:45] VITALS: BP 149/77
[2018-03-04] MEDS: ONDANSETRON PF 4 MG/2 ML VIAL. IV PRN (02:31)
[2018-03-04 02:38] VITALS: BP 141/79
[2018-03-04] MEDS: IV NORMAL SALINE 1000ML BAG 1,000 ML IV SCH (05:40)
[2018-03-04 07:00] VITALS: BP 142/75
[2018-03-04] MEDS: PANTOPRAZOLE 40 MG TABLET.DR. PO SCH (07:25)
[2018-03-04] MEDS: SUCRALFATE 1 GM TABLET. PO SCH (07:25)
[2018-03-04 08:47] VITALS: BP 135/72
[2018-03-04] MEDS: ASPIRIN ENTERIC COATED 81 MG TABLET.DR. PO SCH (08:49)
[2018-03-04] MEDS: MULTIVITAMIN with MINERAL TABLET. PO SCH (08:49)
[2018-03-04] MEDS: LACTOBACILLUS RHAMNOSUS GG 1 CAPSULE. PO SCH (08:49)
[2018-03-04] MEDS: LISINOPRIL 20 MG TABLET PO SCH (08:50)
[2018-03-04] MEDS: NAPROXEN 500 MG TABLET PO SCH (08:51)
--- NOTE | 2018-03-04 09:44 | PDOC ---
Subjective: Subjective: Feels much better. Tolerating PO w/o n/v or abd pain. Denies diarrhea. Wants to discharge. Objective: Vital Signs: Vital Signs Date Time Temp Pulse Resp B/P (MAP) Pulse Ox O2 Delivery O2 Flow Rate FiO2 03/04/18 08:55 Room Air 03/04/18 08:50 60 135/72 03/04/18 07:00 98.0 20 91 98.0 PE: GEN: NAD LUNGS: CTAB HEART: RRR ABD: S/ND/NT NEURO/PSYCH: A & O 3 A/P: Nausea, abd pain, diarrhea - resolved Anemia, fecal occult positive Abnormal CT - diffuse long segment wall thickening of the descending colon and sigmoid colon CRC screen - none -- Improved and tolerating PO. She would like to go home - okay per GI. Our office will contact re: scheduling outpt EGD and colonoscopy. CHARLEY NOEL Mar 04, 2018 09:44
[2018-03-04] MEDS ORDERED: METR500T PO (09:53)
--- NOTE | 2018-03-04 10:13 | PDOC3 ---
Discharge Summary Visit Information Date of Admission: Mar 01, 2018 Date of Discharge: Mar 04, 2018 Admitting Diagnosis Comment: Descending colon and sigmoid colitis- History of colitis in the past Never had a colonoscopy SIRS POA Mild PCM Elevated lactate/leukocytosis-even sepsis with no organ dysfunction POA AK I VMN secondary to GI loss - reoslved Final Diagnosis Problems Medical Problems: (1) Colitis Status: Acute (2) Intractable nausea and vomiting Status: Acute (3) Leukocytosis Status: Acute Brief Hospital Course Allergies Allergies Coded Allergies Type Severity Reaction Last Updated Verified promethazine Adverse Reaction Severe SEVERE MIGRAINE 07/21/17 Yes lactose Adverse Reaction Mild Constipation. 03/01/18 Yes Vital Signs Vital Signs Date Time Temp Pulse Resp B/P (MAP) Pulse Ox O2 Delivery O2 Flow Rate FiO2 03/04/18 08:55 Room Air 03/04/18 08:50 60 135/72 03/04/18 07:00 98.0 20 91 98.0 Brief Hospital Course Ms. De La Rosa is a 62 old female, self-pay, comes in because of her fourth episode of colitis in the span of years. Never had a colonoscopy done. Did well with IV Cipro. Tolerating a diet. Stayed about 2 days with us and cleared from GI to go home and by mouth Cipro. GI will get in touch about routine outpatient colonoscopy. consults: gi Proc None Dispo; home with dc < 30 Discharge Information Condition at Discharge: Improved, Stable Disposition/Orders: D/C to Home Scheduled Lisinopril (Lisinopril) 20 Mg Tablet, 20 MG PO DAILY for FOR HYPERTENSION, #30 Ref 0 (Reported) Entered as Reported by: CARLOS HANNON on 07/21/17 0617 Last Action: Continued on 03/01/18 1000 by TR MALLOY Metronidazole (Flagyl) 500 Mg Tablet, 1 TAB PO BID for colitis, #14 Prescribed by: TR MALLOY on 03/04/18 0953 Naproxen (Naproxen) 500 Mg Tablet, 500 MG PO BID, #60 Ref 1 Prescribed by: JIHAN REYES on 07/23/17 0857 Last Action: Converted on 03/01/18 1001 by TR MALLOY Oxycodone/Apap 5-325 (Percocet 5-325 Mg Tablet ) 1 Each Tablet, 1-2 TAB PO Q4- 6HRS, #40 Prescribed by: JIHAN REYES on 07/23/17 0857 Last Action: Continued on 03/01/18 1001 by TR MALLOY Miscellaneous Medications Aspirin (Aspir-Low) 81 Mg Tablet.dr, 81 MG PO, (Reported) Entered as Reported by: CARLOS HANNON on 07/21/17616 Last Action: Continued on 03/01/18 1000 by TR MALLOY Lactobacillus Acidophilus (Acidophilus) 1 Each Tablet, 1 EACH PO, (Reported) Entered as Reported by: CARLOS HANNON on 07/21/17617 Last Action: Converted on 03/01/18 1000 by TR MALLOY Lactobacillus Combo No.10 (Probiotic) 1 Each Capsule, 1 EACH PO, (Reported) Entered as Reported by: CARLOS HANNON on 07/21/17616 Last Action: HELD on 03/01/18 1000 by TR MALLOY Multivits-Min/Fa/Lycopene/Lut (Centrum Silver Tablet) 1 Each Tablet, 1 EACH PO, (Reported) Entered as Reported by: CARLOS HANNON on 07/21/17616 Last Action: Converted on 03/01/18 1000 by TR MALLOY Sucralfate (Carafate) 1 Gm Tablet, 1 GM PO, (Reported) Entered as Reported by: CARLOS HANNON on 07/21/17616 Last Action: Converted on 03/01/18 1000 by TR ASHBY MD Mar 04, 2018 10:12
[2018-03-04 11:00] VITALS: BP 132/75
== END 2018-03-04 12:16 | disposition home or self-care (01) | DRG 871 ==
LOC: ER 07:00 → 5 SOUTH 09:45
PROVIDERS: ADMIT Internal Medicine; ATTEND Internal Medicine
DX: A41.9 Sepsis, unspecified organism (principal); N17.0 Acute kidney failure with tubular necrosis; E44.1 Mild protein-calorie malnutrition; D64.9 Anemia, unspecified; E11.9 Type 2 diabetes mellitus without complications; I10 Essential (primary) hypertension; K21.9 Gastro-esophageal reflux disease without esophagitis; K52.9 Noninfective gastroenteritis and colitis, unspecified; Z82.49 Family history of ischemic heart disease and other diseases of the circulatory system; Z88.8 Allergy status to other drugs, medicaments and biological substances; Z68.25 Body mass index [BMI] 25.0-25.9, adult; Z79.899 Other long term (current) drug therapy
CPT/HCPCS: 36415; 74022; 74177; 80053; 81001; 82274; 83605; 83690; 84484; 85007; 85025; 85651; 90471; 90756; 93005; 96361; 96374; 96375; J0780; J2270; J2405; J3490; J7030; Q9967; 99285-25; Q2035

== ENCOUNTER → 2018-03-07 | Day surgery (SDC) | payer OTHER ==
[~2018-03-07] MED LIST changes: +IV RINGERS,LACTATED 1000ML 1,000 ML IV SCH; +LIDOCAINE 1% PF 2 ML VIAL. ONE; +METR500T PO; +PROPOFOL 40 ML IV ONE
[2018-03-07 09:02] VITALS: BP 144/75
--- NOTE | 2018-03-09 14:09 | PATHOLOGY ---
[facility] Accession Number: [id number] . 01 Material submitted: . RANDOM COLON BIOPSIES . 01 Clinical history: . Abdominal pain, diarrhea . 02 Diagnosis: Colonic mucosa, random colon biopsies: - No significant pathologic abnormalities. (JPM:vicenta; 03/09/2018) QMS/03/09/2018 . 02 Comment: Sections of the random colon biopsy reveal multiple segments of colonic mucosa containing a few mucosal-associated lymphoid aggregates. There is no evidence of a chronic destructive colitis, lymphocytic colitis, or collagenous colitis. (JPM:vicenta; 03/09/2018) . 02 Electronically signed: . Rhys Arias MD, Pathologist NPI- [id number] . 01 Gross description: . Received in formalin labeled "Agnes De La Rosa, random colon biopsies," are multiple segments of rousseau soft tissue measuring 2.4 x 0.5 x 0.2 cm in aggregate dimensions. The specimen is filtered and entirely submitted in cassette A1. (TSD; 03/07/2018) TOB/TOB . 02 Pathologist provided ICD-10: R10.9 . 02 CPT . 672469 Specimen Comment: A courtesy copy of this report has been sent to Specimen Comment: [phone]. Specimen Comment: Report sent to Performed at: 01 [facility] [address], [place] [id number] MD Gurjit West MD Phone: [phone] Performed at: 02 [facility] [address], [place] [id number] MD Rhys Arias MD Phone: [phone]
== END | disposition home or self-care (01) ==
LOC: ENDOS 06:58
PROVIDERS: ATTEND Internal Medicine Gastroenterology
DX: K29.50 Unspecified chronic gastritis without bleeding (principal); K57.30 Diverticulosis of large intestine without perforation or abscess without bleeding; K64.0 First degree hemorrhoids; R10.32 Left lower quadrant pain; K21.9 Gastro-esophageal reflux disease without esophagitis; Z98.890 Other specified postprocedural states; Z82.49 Family history of ischemic heart disease and other diseases of the circulatory system; Z79.899 Other long term (current) drug therapy; Z79.82 Long term (current) use of aspirin; Z88.8 Allergy status to other drugs, medicaments and biological substances; Z91.011 Allergy to milk products
CPT/HCPCS: 43235; 45380; 88305; J2704